=== PATIENT | female | born 1970 | race Caucasian/White ===

== ENCOUNTER 2018-09-07 13:55 | Emergency (ER) | payer MEDICARE, SELFPAY ==
[2018-09-07 14:19] VITALS: BP 142/98; PULSE 92; RESP 18; TEMP 36.6; O2SAT 97; BMI 25.5
[2018-09-07 15:14] LABS: INR 0.9 (0.9-1.3); Prothrombin Time 10.6 SECONDS (10.1-12.7)
[2018-09-07 15:16] LABS: Add Manual Diff / Slide Review NO; Basophils Percent Auto 0.4 % (0-2); Eosinophils Percent Auto 0.7 % (2-4); Hemoglobin 14.7 g/dL (12.0-16.0); Lymphocytes Percent Auto 25.9 % (25-40); Mean Corpuscular HGB Conc 33.6 % (30-36); Mean Corpuscular Hemoglobin 36.4 PG (26-34); Mean Corpuscular Volume 108.4 fL (80-100); Monocytes Percent Auto 4.9 % (3-14); Neutrophils Absolute Auto 7900 /uL (1500-7000); Neutrophils Percent Auto 68.1 % (50-75); PTT Partial Thromboplastin Tim 30 SECONDS (26.4-36.2); Platelet Count 244 X10^3/uL (150-400); Red Blood Cell Count 4.05 X10^6/uL (4.0-5.2); Red Cell Distribution Width 12.1 % (11.6-14.8); White Blood Cell Count 11.7 X10^3/uL (4.5-11.0)
[2018-09-07 15:19] LABS: Alanine Aminotransferase 38 IU/L (9-52); Albumin 4.7 g/dL (3.5-5.0); Albumin Globulin Ratio 1.8 (1.0-2.8); Alkaline Phosphatase 52 U/L (38-126); Aspartate Aminotransferase 25 IU/L (14-36); BUN Creatinine Ratio 24.3 (6-22); Bilirubin Total 0.3 mg/dL (0.2-1.3); Blood Urea Nitrogen 17 mg/dL (7-17); Carbon Dioxide 25 mmol/L (22-32); Chloride 102 mmol/L (98-107); Estimated Glomerular Filt Rate > 60.0 mL/min (>60); Globulin 2.6 g/dL (1.7-4.1); Glucose 89 mg/dL (70-100); HEMOLYSIS < 15 (0-50); Lipase 79 U/L (23-300); Potassium 4.6 mmol/L (3.4-5.1); Sodium 142 mmol/L (137-145); Total Protein 7.3 g/dL (6.3-8.2)
--- NOTE | 2018-09-07 15:34 | DI.CT.S_ITS ---
PROCEDURE: CT KIDNEY URETER BLADDER (KUB) INDICATIONS: flank pain TECHNIQUE: Noncontrast 5 mm thick sections acquired from the diaphragms to the symphysis. 5 mm thick coronal and sagittal reformats were then performed. For radiation dose reduction, the following was used: automated exposure control, adjustment of mA and/or kV according to patient size. COMPARISON: [facility], CT, ABDOMEN/PELVIS WITHOUT CONTRAS, 12/08/2014, 21:16. [facility], CT, KIDNEY/ URETER/BLADDER, 01/19/2016, 15:54. FINDINGS: Image quality: Excellent. Lung bases: Lung bases are clear. Heart size is normal. Urinary system: Both kidneys are normal in size. No kidney stones. No hydronephrosis or perinephric fat stranding. Both ureters appear non-dilated throughout their expected courses. Bladder wall thickness is normal; no calcified bladder stones. Other solid organs: Liver is normal in size. Gallbladder is normal. Pancreas is normal in contours. Spleen is normal in size. No adrenal nodules. Peritoneum and bowel: There are scattered colonic diverticula in sigmoid colon. There is focal stranding surrounding a sigmoid diverticula consistent with acute diverticulitis. Unenhanced bowel loops demonstrate normal wall thickness and caliber. Normal appendix. No free fluid or air. Nodes and vessels: No retroperitoneal or mesenteric adenopathy by size criteria. Aorta and inferior vena cava are normal in caliber. Abdominal wall: No ventral hernias. Pelvis: No free pelvic fluid. No inguinal hernias or adenopathy. Bones: No suspicious bony lesions. No vertebral body compression fractures. IMPRESSION: 1. Sigmoid diverticulosis. There is stranding around the sigmoid colon consistent with acute diverticulitis. 2. No renal stone or hydronephrosis. 3. Normal appendix. Dictated by: Rebecca Donohue M.D. on 09/07/2018 at 16:53 Approved by: Rebecca Donohue M.D. on 09/07/2018 at 17:06
[2018-09-07] MEDS: ONDANSETRON 4 MG/2 ML INJ IV (15:42)
[2018-09-07] MEDS: KETOROLAC 60 MG/2 ML VIAL 30 MG IV (15:42)
[2018-09-07] MEDS: SODIUM CHLORIDE 0.9% 1,000 ML 1000 ML IV (15:42)
[2018-09-07 15:59] VITALS: BP 116/74; PULSE 68; RESP 18; O2SAT 95
[2018-09-07 17:00] VITALS: BP 121/69; PULSE 68; O2SAT 95
--- NOTE | 2018-09-07 17:29 | ED.FEMALEGU ---
HPI - Female Genitourinary <LB Urban - Last Filed: 09/07/18 19:43> General Chief complaint: Urogenital-Female Stated complaint: KIDNEY PAIN,MIDDLE BACK PAIN Time Seen by Provider: 09/07/18 15:24 Source: patient Mode of arrival: ambulatory Limitations: no limitations History of Present Illness HPI Narrative: Patient is a 48-year-old female smoker presents with a chief complaint of bilateral flank pain that started today. She states that the pain comes in waves is consistent with her previous kidney stones. She denies any fever, nausea vomiting diarrhea. She does complain of occasional vomiting when the pain is severe. She denies any dysuria urgency or frequency. She denies any abdominal pain. Related Data Previous Rx's Medication Instructions Recorded estradiol 1 mg tablet 1 mg PO QDAY #90 tab 05/20/18 ciprofloxacin HCl 500 mg PO BID #14 tab 09/07/18 metronidazole [Flagyl] 500 mg PO TID 10 Days #30 tab 09/07/18 ondansetron 4 mg PO TID-QID PRN #20 tab 09/07/18 oxycodone-acetaminophen [Percocet] 1 tab PO Q4-6H PRN #20 tab 09/07/18 amoxicillin-pot clavulanate 1 tab PO TID 10 Days #30 tab 09/08/18 [Augmentin] promethazine 25 mg IN Q6H PRN #12 each 09/08/18 Allergies Allergy/AdvReac Type Severity Reaction Status Date / Time No Known Drug Allergies Allergy Verified 09/08/18 12:11 Review of Systems <LB Urban - Last Filed: 09/07/18 19:43> Review of Systems GENERAL: Denies chills, fatigue, malaise, fever, sweats. HEENT: Denies sinus pain, ear pain, sore throat, difficulty swallowing, dizziness. RESPIRATORY: Denies dyspnea, cough, wheezing, hemoptysis, sputum. CARDIOVASCULAR: Denies chest pain, palpitations, orthopnea, edema, GASTROINTESTINAL: See HPI : See HPI MUSCULOSKELETAL: denies weakness, joint pain, or bony pain SKIN: Denies rash, skin lesions, or other NEUROLOGIC: Denies weakness, headache, numbness, change in speech, confusion, seizures, incoordination. PSYCHIATRIC: No concerning psychosocial issues. 12 point review of systems is negative except for those stated above Exam <MIRA Urban - Last Filed: 09/07/18 19:43> Narrative Exam Narrative: GENERAL: This is a well-nourished, well-developed patient, in mild distress. HEAD: Atraumatic. Normocephalic. No temporal or scalp tenderness. EYES: Pupils equal round and reactive. Extraocular motions intact. No scleral icterus. No injection or drainage. ENT: Nose without bleeding, purulent drainage or septal hematoma. Throat without erythema, tonsillar hypertrophy or exudate. Uvula midline. Airway patent. NECK: Trachea midline. No JVD or lymphadenopathy. Supple, nontender, no meningeal signs. CARDIOVASCULAR: Regular rate and rhythm without murmurs, gallops, or rubs. RESPIRATORY: Clear to auscultation. Breath sounds equal bilaterally. No wheezes, rales, or rhonchi. GASTROINTESTINAL: Abdomen soft, non-tender, nondistended. No hepato-splenomegaly, or palpable masses. No guarding. Active bowel sounds all 4 quadrants. EXTREMITIES: No clubbing, cyanosis, or edema. No joint tenderness, effusion, or edema noted. BACK: Nontender without deformity or crepitance. Diffuse bilateral flank pain to palpation. NEURO: AOx3. SKIN: No rash or erythema. Initial Vital Signs Initial Vital Signs: Vital Signs Temperature 97.9 F 09/07/18 14:19 Pulse Rate 92 H 09/07/18 14:19 Respiratory Rate 18 09/07/18 14:19 Blood Pressure 142/98 H 09/07/18 14:19 Pulse Oximetry 97 09/07/18 14:19 <Ash Melo DO - Last Filed: 09/09/18 20:22> Initial Vital Signs Initial Vital Signs: Vital Signs Temperature 97.9 F 09/07/18 14:19 Pulse Rate 92 H 09/07/18 14:19 Respiratory Rate 18 09/07/18 14:19 Blood Pressure 142/98 H 09/07/18 14:19 Pulse Oximetry 97 09/07/18 14:19 Course <MIRA Urban - Last Filed: 09/07/18 19:43> Course Narrative: I checked on the patient several times throughout her stay in the emergency department. Orders Ordered: Discontinued Medications Sodium Chloride (Normal Saline 0.9%) 1,000 mls @ 1,000 mls/hr IV BOLUS ONE Stop: 09/07/18 16:31 Last Infusion: 09/07/18 16:34 Dose: 0 mls/hr Admin: 09/07/18 15:42 Dose: 1,000 mls/hr Ketorolac Tromethamine (Toradol) 30 mg IV NOW ONE Stop: 09/07/18 15:33 Last Admin: 09/07/18 15:42 Dose: 30 mg Ondansetron HCl (Zofran Odt) 4 mg PO NOW ONE Stop: 09/07/18 14:50 Last Admin: 09/07/18 15:35 Dose: Not Given Ondansetron HCl (Zofran) 4 mg IV NOW ONE Stop: 09/07/18 15:33 Last Admin: 09/07/18 15:42 Dose: 4 mg Vital Signs - 8 hr 09/07/18 14:19 09/07/18 15:59 09/07/18 17:00 Temperature 97.9 F Pulse Rate 92 H 68 68 Respiratory Rate 18 18 Blood Pressure 142/98 H Blood Pressure [Left Arm] 116/74 121/69 Pulse Oximetry 97 95 95 09/07/18 17:48 Temperature Pulse Rate 72 Respiratory Rate 18 Blood Pressure 125/69 Blood Pressure [Left Arm] Pulse Oximetry 98 <Ash Melo, DO - Last Filed: 09/09/18 20:22> Orders Ordered: Discontinued Medications Sodium Chloride (Normal Saline 0.9%) 1,000 mls @ 1,000 mls/hr IV BOLUS ONE Stop: 09/07/18 16:31 Last Infusion: 09/07/18 16:34 Dose: 0 mls/hr Admin: 09/07/18 15:42 Dose: 1,000 mls/hr Ketorolac Tromethamine (Toradol) 30 mg IV NOW ONE Stop: 09/07/18 15:33 Last Admin: 09/07/18 15:42 Dose: 30 mg Ondansetron HCl (Zofran Odt) 4 mg PO NOW ONE Stop: 09/07/18 14:50 Last Admin: 09/07/18 15:35 Dose: Not Given Ondansetron HCl (Zofran) 4 mg IV NOW ONE Stop: 09/07/18 15:33 Last Admin: 09/07/18 15:42 Dose: 4 mg Vital Signs - 8 hr 09/07/18 14:19 09/07/18 15:59 09/07/18 17:00 Temperature 97.9 F Pulse Rate 92 H 68 68 Respiratory Rate 18 18 Blood Pressure 142/98 H Blood Pressure [Left Arm] 116/74 121/69 Pulse Oximetry 97 95 95 09/07/18 17:48 Temperature Pulse Rate 72 Respiratory Rate 18 Blood Pressure 125/69 Blood Pressure [Left Arm] Pulse Oximetry 98 MDM - Female Genitourinary <Jessica Gore, [employer]-BC - Last Filed: 09/07/18 19:43> Lab Data Result diagrams: 09/07/18 15:00 09/07/18 15:00 Lab Results 09/07/18 09/07/18 09/07/18 Range/Units 15:00 15:00 15:00 WBC 11.7 H (4.5-11.0) X10^3/uL RBC 4.05 (4.0-5.2) X10^6/uL Hgb 14.7 (12.0-16.0) g/dL Hct 44.0 (36-46) % MCV 108.4 H (80-100) fL MCH 36.4 H (26-34) PG MCHC 33.6 (30-36) % RDW 12.1 (11.6-14.8) % Plt Count 244 (150-400) X10^3/uL Neut % (Auto) 68.1 (50-75) % Lymph % (Auto) 25.9 (25-40) % Graham % (Auto) 4.9 (3-14) % Eos % (Auto) 0.7 L (2-4) % Baso % (Auto) 0.4 (0-2) % Neut # (Auto) 7900 H (5452-0858) /uL PT 10.6 (10.1-12.7) SECONDS INR 0.9 (0.9-1.3) APTT 30 (26.4-36.2) SECONDS Sodium 142 (137-145) mmol/L Potassium 4.6 (3.4-5.1) mmol/L Chloride 102 (98-107) mmol/L Carbon Dioxide 25 (22-32) mmol/L BUN 17 (7-17) mg/dL Creatinine 0.70 (0.52-1.04) mg/dL Estimated GFR > 60.0 (>60) mL/min BUN/Creatinine Ratio 24.3 H (6-22) Glucose 89 (70-100) mg/dL Calcium 10.0 (8.4-10.2) mg/dL Total Bilirubin 0.3 (0.2-1.3) mg/dL AST 25 (14-36) IU/L ALT 38 (9-52) IU/L Alkaline Phosphatase 52 (38-126) U/L Total Protein 7.3 (6.3-8.2) g/dL Albumin 4.7 (3.5-5.0) g/dL Globulin 2.6 (1.7-4.1) g/dL Albumin/Globulin Ratio 1.8 (1.0-2.8) Lipase 79 (23-300) U/L Urine Dip Bedside Urine Glucose Negative Bedside Urine Bilirubin - Negative Bedside Urine Ketone - Negative Urine Specific Worley 1.020 Bedside Urine Occult Blood - Negative Bedside Urine pH 6.0 Bedside Urine Protein - Negative Bedside Urine Urobilinogen - Negative Bedside Urine Nitrite - Negative Bedside Urine Leukocytes - Negative Esterase Imaging Data CT scan - abdomen: Radiologist's impression: [place] [id number] CT Scan Report Signed Patient: eBthany Sprague MR#: [id number] : 1970 Acct:[id number] Age/Sex: 48 / F Date of Service: 09/07/18 Loc: ED Accession Number: [id number] Procedure: CT kidney ureter bladder (KUB) [facility] PROCED[facility]: CT KIDNEY URETER BLADDER (KUB) INDICATIONS: flank pain TECHNIQUE: Noncontrast 5 mm thick sections acquired from the diaphragms to the symphysis. 5 mm thick coronal and sagittal reformats were then performed. For radiation dose reduction, the following was used: automated exposure control, adjustment of mA and/or kV according to patient size. COMPARISON: [facility], CT, ABDOMEN/PELVIS WITHOUT CONTRAS, 12/08/2014, 21:16. [facility], CT, KIDNEY/ URETER/BLADDER, 01/19/2016, 15:54. FINDINGS: Image quality: Excellent. Lung bases: Lung bases are clear. Heart size is normal. Urinary system: Both kidneys are normal in size. No kidney stones. No hydronephrosis or perinephric fat stranding. Both ureters appear non-dilated throughout their expected courses. Bladder wall thickness is normal; no calcified bladder stones. Other solid organs: Liver is normal in size. Gallbladder is normal. Pancreas is normal in contours. Spleen is normal in size. No adrenal nodules. Peritoneum and bowel: There are scattered colonic diverticula in sigmoid colon. There is focal stranding surrounding a sigmoid diverticula consistent with acute diverticulitis. Unenhanced bowel loops demonstrate normal wall thickness and caliber. Normal appendix. No free fluid or air. Nodes and vessels: No retroperitoneal or mesenteric adenopathy by size criteria. Aorta and inferior vena cava are normal in caliber. Abdominal wall: No ventral hernias. Pelvis: No free pelvic fluid. No inguinal hernias or adenopathy. Bones: No suspicious bony lesions. No vertebral body compression fractures. IMPRESSION: 1. Sigmoid diverticulosis. There is stranding around the sigmoid colon consistent with acute diverticulitis. 2. No renal stone or hydronephrosis. 3. Normal appendix. Dictated by: Rebecca Donohue M.D. on 09/07/2018 at 16:53 Approved by: Rebecca Donohue M.D. on 09/07/2018 at 17:06 MDM Narrative Medical decision making narrative: Patient is a 48-year-old female who presented with flank pain. She felt as though they were repeat kidney stones, however CT showed diverticulitis. She also had slightly elevated WBC count. Mother she was started on combination of Cipro and Flagyl. She is given a prescription of Percocet and Zofran for pain. I did discuss with her not drinking alcohol with the Flagyl. The patient did mention that she might hold off on starting her antibiotics until after [place] so she could drink over the holidays. I tried to discourage her from this idea. I discussed at length return precautions of inability keep down fluids, high fever or any acute concerns and discussed follow up with her primary care provider. Patient had no questions or concerns upon discharge. <Ash Melo, DO - Last Filed: 09/09/18 20:22> Lab Data Lab Results 09/07/18 09/07/18 09/07/18 Range/Units 15:00 15:00 15:00 WBC 11.7 H (4.5-11.0) X10^3/uL RBC 4.05 (4.0-5.2) X10^6/uL Hgb 14.7 (12.0-16.0) g/dL Hct 44.0 (36-46) % MCV 108.4 H (80-100) fL MCH 36.4 H (26-34) PG MCHC 33.6 (30-36) % RDW 12.1 (11.6-14.8) % Plt Count 244 (150-400) X10^3/uL Neut % (Auto) 68.1 (50-75) % Lymph % (Auto) 25.9 (25-40) % Graham % (Auto) 4.9 (3-14) % Eos % (Auto) 0.7 L (2-4) % Baso % (Auto) 0.4 (0-2) % Neut # (Auto) 7900 H (8029-3153) /uL PT 10.6 (10.1-12.7) SECONDS INR 0.9 (0.9-1.3) APTT 30 (26.4-36.2) SECONDS Sodium 142 (137-145) mmol/L Potassium 4.6 (3.4-5.1) mmol/L Chloride 102 (98-107) mmol/L Carbon Dioxide 25 (22-32) mmol/L BUN 17 (7-17) mg/dL Creatinine 0.70 (0.52-1.04) mg/dL Estimated GFR > 60.0 (>60) mL/min BUN/Creatinine Ratio 24.3 H (6-22) Glucose 89 (70-100) mg/dL Calcium 10.0 (8.4-10.2) mg/dL Total Bilirubin 0.3 (0.2-1.3) mg/dL AST 25 (14-36) IU/L ALT 38 (9-52) IU/L Alkaline Phosphatase 52 (38-126) U/L Total Protein 7.3 (6.3-8.2) g/dL Albumin 4.7 (3.5-5.0) g/dL Globulin 2.6 (1.7-4.1) g/dL Albumin/Globulin Ratio 1.8 (1.0-2.8) Lipase 79 (23-300) U/L Urine Dip Bedside Urine Glucose Negative Bedside Urine Bilirubin - Negative Bedside Urine Ketone - Negative Urine Specific [place] 1.020 Bedside Urine Occult Blood - Negative Bedside Urine pH 6.0 Bedside Urine Protein - Negative Bedside Urine Urobilinogen - Negative Bedside Urine Nitrite - Negative Bedside Urine Leukocytes - Negative Esterase Discharge Plan Departure Patient Disposition: Home Clinical Impression: Diverticulitis Discharge Date/Time: 09/07/18 17:51 Interventions: ED Discharge Assessment Last Done: 09/07/18 17:48 Instructions: DI for Diverticulitis Activity Restrictions/Additional Instructions: I am starting on 2 antibiotics for your diverticulitis. One of these cannot be combined with alcohol. I am also giving a medication for nausea to take as needed as well as pain to take as needed. Please be aware that the pain medication can be sedating. Please do not combine it with any muscle relaxers or other sedating agents. Please monitor for fever, inability keep down fluids or any acute concerns and follow up with primary care provider come back to the emergency department if needed. Prescriptions: New ciprofloxacin HCl 500 mg tablet 500 mg PO BID Qty: 14 RF: 0 metronidazole [Flagyl] 500 mg tablet 500 mg PO TID 10 Days Qty: 30 RF: 0 ondansetron 4 mg tablet,disintegrating 4 mg PO TID-QID PRN (Reason: nausea and vomiting) Qty: 20 RF: 0 oxycodone-acetaminophen [Percocet] 5-325 mg tablet 1 tab PO Q4-6H PRN (Reason: pain) Qty: 20 RF: 0 No Action estradiol 1 mg tablet 1 mg PO QDAY Qty: 90 RF: 1 amoxicillin-pot clavulanate [Augmentin] 875-125 mg tablet 1 tab PO TID 10 Days Qty: 30 RF: 0 promethazine 25 mg suppository 25 mg IN Q6H PRN (Reason: nausea and vomiting) Qty: 12 RF: 0 <Ash Melo DO - Last Filed: 09/09/18 20:22> Cosgwendolyn ED Attending Sury Attestation: I was immediately available in the department for consultation. Documentation has been reviewed. I agree with assessment and plan.
--- NOTE | 2018-09-07 17:33 | ED_ITS ---
HPI - Female Genitourinary <LB Urban - Last Filed: 09/07/18 19:43> General Chief complaint: Urogenital-Female Stated complaint: KIDNEY PAIN,MIDDLE BACK PAIN Time Seen by Provider: 09/07/18 15:24 Source: patient Mode of arrival: ambulatory Limitations: no limitations History of Present Illness HPI Narrative: Patient is a 48-year-old female smoker presents with a chief complaint of bilateral flank pain that started today. She states that the pain comes in waves is consistent with her previous kidney stones. She denies any fever, nausea vomiting diarrhea. She does complain of occasional vomiting when the pain is severe. She denies any dysuria urgency or frequency. She denies any abdominal pain. Related Data Previous Rx's Medication Instructions Recorded estradiol 1 mg tablet 1 mg PO QDAY #90 tab 05/20/18 ciprofloxacin HCl 500 mg PO BID #14 tab 09/07/18 metronidazole [Flagyl] 500 mg PO TID 10 Days #30 tab 09/07/18 ondansetron 4 mg PO TID-QID PRN #20 tab 09/07/18 oxycodone-acetaminophen [Percocet] 1 tab PO Q4-6H PRN #20 tab 09/07/18 amoxicillin-pot clavulanate 1 tab PO TID 10 Days #30 tab 09/08/18 [Augmentin] promethazine 25 mg MI Q6H PRN #12 each 09/08/18 Allergies Allergy/AdvReac Type Severity Reaction Status Date / Time No Known Drug Allergies Allergy Verified 09/08/18 12:11 Review of Systems <LB Urban - Last Filed: 09/07/18 19:43> Review of Systems GENERAL: Denies chills, fatigue, malaise, fever, sweats. HEENT: Denies sinus pain, ear pain, sore throat, difficulty swallowing, dizziness. RESPIRATORY: Denies dyspnea, cough, wheezing, hemoptysis, sputum. CARDIOVASCULAR: Denies chest pain, palpitations, orthopnea, edema, GASTROINTESTINAL: See HPI : See HPI MUSCULOSKELETAL: denies weakness, joint pain, or bony pain SKIN: Denies rash, skin lesions, or other NEUROLOGIC: Denies weakness, headache, numbness, change in speech, confusion, seizures, incoordination. PSYCHIATRIC: No concerning psychosocial issues. 12 point review of systems is negative except for those stated above Exam <MIRA Urban - Last Filed: 09/07/18 19:43> Narrative Exam Narrative: GENERAL: This is a well-nourished, well-developed patient, in mild distress. HEAD: Atraumatic. Normocephalic. No temporal or scalp tenderness. EYES: Pupils equal round and reactive. Extraocular motions intact. No scleral icterus. No injection or drainage. ENT: Nose without bleeding, purulent drainage or septal hematoma. Throat without erythema, tonsillar hypertrophy or exudate. Uvula midline. Airway patent. NECK: Trachea midline. No JVD or lymphadenopathy. Supple, nontender, no meningeal signs. CARDIOVASCULAR: Regular rate and rhythm without murmurs, gallops, or rubs. RESPIRATORY: Clear to auscultation. Breath sounds equal bilaterally. No wheezes , rales, or rhonchi. GASTROINTESTINAL: Abdomen soft, non-tender, nondistended. No hepato-splenomegaly , or palpable masses. No guarding. Active bowel sounds all 4 quadrants. EXTREMITIES: No clubbing, cyanosis, or edema. No joint tenderness, effusion, or edema noted. BACK: Nontender without deformity or crepitance. Diffuse bilateral flank pain to palpation. NEURO: AOx3. SKIN: No rash or erythema. Initial Vital Signs Initial Vital Signs: Vital Signs Temperature 97.9 F 09/07/18 14:19 Pulse Rate 92 H 09/07/18 14:19 Respiratory Rate 18 09/07/18 14:19 Blood Pressure 142/98 H 09/07/18 14:19 Pulse Oximetry 97 09/07/18 14:19 <Ash Melo DO - Last Filed: 09/09/18 20:22> Initial Vital Signs Initial Vital Signs: Vital Signs Temperature 97.9 F 09/07/18 14:19 Pulse Rate 92 H 09/07/18 14:19 Respiratory Rate 18 09/07/18 14:19 Blood Pressure 142/98 H 09/07/18 14:19 Pulse Oximetry 97 09/07/18 14:19 Course <MIRA Urban - Last Filed: 09/07/18 19:43> Course Narrative: I checked on the patient several times throughout her stay in the emergency department. Orders Ordered: Discontinued Medications Sodium Chloride (Normal Saline 0.9%) 1,000 mls @ 1,000 mls/hr IV BOLUS ONE Stop: 09/07/18 16:31 Last Infusion: 09/07/18 16:34 Dose: 0 mls/hr Admin: 09/07/18 15:42 Dose: 1,000 mls/hr Ketorolac Tromethamine (Toradol) 30 mg IV NOW ONE Stop: 09/07/18 15:33 Last Admin: 09/07/18 15:42 Dose: 30 mg Ondansetron HCl (Zofran Odt) 4 mg PO NOW ONE Stop: 09/07/18 14:50 Last Admin: 09/07/18 15:35 Dose: Not Given Ondansetron HCl (Zofran) 4 mg IV NOW ONE Stop: 09/07/18 15:33 Last Admin: 09/07/18 15:42 Dose: 4 mg Vital Signs - 8 hr 09/07/18 14:19 09/07/18 15:59 09/07/18 17:00 Temperature 97.9 F Pulse Rate 92 H 68 68 Respiratory Rate 18 18 Blood Pressure 142/98 H Blood Pressure [Left Arm] 116/74 121/69 Pulse Oximetry 97 95 95 09/07/18 17:48 Temperature Pulse Rate 72 Respiratory Rate 18 Blood Pressure 125/69 Blood Pressure [Left Arm] Pulse Oximetry 98 <Ash Melo, DO - Last Filed: 09/09/18 20:22> Orders Ordered: Discontinued Medications Sodium Chloride (Normal Saline 0.9%) 1,000 mls @ 1,000 mls/hr IV BOLUS ONE Stop: 09/07/18 16:31 Last Infusion: 09/07/18 16:34 Dose: 0 mls/hr Admin: 09/07/18 15:42 Dose: 1,000 mls/hr Ketorolac Tromethamine (Toradol) 30 mg IV NOW ONE Stop: 09/07/18 15:33 Last Admin: 09/07/18 15:42 Dose: 30 mg Ondansetron HCl (Zofran Odt) 4 mg PO NOW ONE Stop: 09/07/18 14:50 Last Admin: 09/07/18 15:35 Dose: Not Given Ondansetron HCl (Zofran) 4 mg IV NOW ONE Stop: 09/07/18 15:33 Last Admin: 09/07/18 15:42 Dose: 4 mg Vital Signs - 8 hr 09/07/18 14:19 09/07/18 15:59 09/07/18 17:00 Temperature 97.9 F Pulse Rate 92 H 68 68 Respiratory Rate 18 18 Blood Pressure 142/98 H Blood Pressure [Left Arm] 116/74 121/69 Pulse Oximetry 97 95 95 09/07/18 17:48 Temperature Pulse Rate 72 Respiratory Rate 18 Blood Pressure 125/69 Blood Pressure [Left Arm] Pulse Oximetry 98 MDM - Female Genitourinary <Jessica Gore, [employer]-BC - Last Filed: 09/07/18 19:43> Lab Data Result diagrams: 09/07/18 15:00 09/07/18 15:00 Lab Results 09/07/18 09/07/18 09/07/18 Range/Units 15:00 15:00 15:00 WBC 11.7 H (4.5-11.0) X10^3/uL RBC 4.05 (4.0-5.2) X10^6/uL Hgb 14.7 (12.0-16.0) g/dL Hct 44.0 (36-46) % MCV 108.4 H (80-100) fL MCH 36.4 H (26-34) PG MCHC 33.6 (30-36) % RDW 12.1 (11.6-14.8) % Plt Count 244 (150-400) X10^3/uL Neut % (Auto) 68.1 (50-75) % Lymph % (Auto) 25.9 (25-40) % [place] % (Auto) 4.9 (3-14) % Eos % (Auto) 0.7 L (2-4) % Baso % (Auto) 0.4 (0-2) % Neut # (Auto) 7900 H (0786-4488) /uL PT 10.6 (10.1-12.7) SECONDS INR 0.9 (0.9-1.3) APTT 30 (26.4-36.2) SECONDS Sodium 142 (137-145) mmol/L Potassium 4.6 (3.4-5.1) mmol/L Chloride 102 (98-107) mmol/L Carbon Dioxide 25 (22-32) mmol/L BUN 17 (7-17) mg/dL Creatinine 0.70 (0.52-1.04) mg/dL Estimated GFR > 60.0 (>60) mL/min BUN/Creatinine Ratio 24.3 H (6-22) Glucose 89 (70-100) mg/dL Calcium 10.0 (8.4-10.2) mg/dL Total Bilirubin 0.3 (0.2-1.3) mg/dL AST 25 (14-36) IU/L ALT 38 (9-52) IU/L Alkaline Phosphatase 52 (38-126) U/L Total Protein 7.3 (6.3-8.2) g/dL Albumin 4.7 (3.5-5.0) g/dL Globulin 2.6 (1.7-4.1) g/dL Albumin/Globulin Ratio 1.8 (1.0-2.8) Lipase 79 (23-300) U/L Urine Dip Bedside Urine Glucose Negative Bedside Urine Bilirubin - Negative Bedside Urine Ketone - Negative Urine Specific [place] 1.020 Bedside Urine Occult Blood - Negative Bedside Urine pH 6.0 Bedside Urine Protein - Negative Bedside Urine Urobilinogen - Negative Bedside Urine Nitrite - Negative Bedside Urine Leukocytes - Negative Esterase Imaging Data CT scan - abdomen: Radiologist's impression: [place] [id number] CT Scan Report Signed Patient: Bethany Sprague MR#: [id number] : 1970 Acct:[id number] Age/Sex: 48 / F Date of Service: 09/07/18 Loc: ED Accession Number: [id number] Procedure: CT kidney ureter bladder (KUB) Ordering Provider[facility] PROCEDURE: CT KIDNEY URETER BLADDER (KUB) INDICATIONS: flank pain TECHNIQUE: Noncontrast 5 mm thick sections acquired from the diaphragms to the symphysis. 5 mm thick coronal and sagittal reformats were then performed. For radiation dose reduction, the following was used: automated exposure control, adjustment of mA and/or kV according to patient size. COMPARISON: [facility], CT, ABDOMEN/PELVIS WITHOUT CONTRAS, 12/08/2014, 21: 16. [facility], CT, KIDNEY/ URETER/BLADDER, 01/19/2016, 15:54. FINDINGS: Image quality: Excellent. Lung bases: Lung bases are clear. Heart size is normal. Urinary system: Both kidneys are normal in size. No kidney stones. No hydronephrosis or perinephric fat stranding. Both ureters appear non-dilated throughout their expected courses. Bladder wall thickness is normal; no calcified bladder stones. Other solid organs: Liver is normal in size. Gallbladder is normal. Pancreas is normal in contours. Spleen is normal in size. No adrenal nodules. Peritoneum and bowel: There are scattered colonic diverticula in sigmoid colon. There is focal stranding surrounding a sigmoid diverticula consistent with acute diverticulitis. Unenhanced bowel loops demonstrate normal wall thickness and caliber. Normal appendix. No free fluid or air. Nodes and vessels: No retroperitoneal or mesenteric adenopathy by size criteria. Aorta and inferior vena cava are normal in caliber. Abdominal wall: No ventral hernias. Pelvis: No free pelvic fluid. No inguinal hernias or adenopathy. Bones: No suspicious bony lesions. No vertebral body compression fractures. IMPRESSION: 1. Sigmoid diverticulosis. There is stranding around the sigmoid colon consistent with acute diverticulitis. 2. No renal stone or hydronephrosis. 3. Normal appendix. Dictated by: Rebecca Donohue M.D. on 09/07/2018 at 16:53 Approved by: Rebecca Donohue M.D. on 09/07/2018 at 17:06 MDM Narrative Medical decision making narrative: Patient is a 48-year-old female who presented with flank pain. She felt as though they were repeat kidney stones, however CT showed diverticulitis. She also had slightly elevated WBC count. Mother she was started on combination of Cipro and Flagyl. She is given a prescription of Percocet and Zofran for pain. I did discuss with her not drinking alcohol with the Flagyl. The patient did mention that she might hold off on starting her antibiotics until after Debra so she could drink over the holidays. I tried to discourage her from this idea. I discussed at length return precautions of inability keep down fluids, high fever or any acute concerns and discussed follow up with her primary care provider. Patient had no questions or concerns upon discharge. <Ash Melo, DO - Last Filed: 09/09/18 20:22> Lab Data Lab Results 09/07/18 09/07/18 09/07/18 Range/Units 15:00 15:00 15:00 WBC 11.7 H (4.5-11.0) X10^3/uL RBC 4.05 (4.0-5.2) X10^6/uL Hgb 14.7 (12.0-16.0) g/dL Hct 44.0 (36-46) % MCV 108.4 H (80-100) fL MCH 36.4 H (26-34) PG MCHC 33.6 (30-36) % RDW 12.1 (11.6-14.8) % Plt Count 244 (150-400) X10^3/uL Neut % (Auto) 68.1 (50-75) % Lymph % (Auto) 25.9 (25-40) % [place] % (Auto) 4.9 (3-14) % Eos % (Auto) 0.7 L (2-4) % Baso % (Auto) 0.4 (0-2) % Neut # (Auto) 7900 H (3792-9197) /uL PT 10.6 (10.1-12.7) SECONDS INR 0.9 (0.9-1.3) APTT 30 (26.4-36.2) SECONDS Sodium 142 (137-145) mmol/L Potassium 4.6 (3.4-5.1) mmol/L Chloride 102 (98-107) mmol/L Carbon Dioxide 25 (22-32) mmol/L BUN 17 (7-17) mg/dL Creatinine 0.70 (0.52-1.04) mg/dL Estimated GFR > 60.0 (>60) mL/min BUN/Creatinine Ratio 24.3 H (6-22) Glucose 89 (70-100) mg/dL Calcium 10.0 (8.4-10.2) mg/dL Total Bilirubin 0.3 (0.2-1.3) mg/dL AST 25 (14-36) IU/L ALT 38 (9-52) IU/L Alkaline Phosphatase 52 (38-126) U/L Total Protein 7.3 (6.3-8.2) g/dL Albumin 4.7 (3.5-5.0) g/dL Globulin 2.6 (1.7-4.1) g/dL Albumin/Globulin Ratio 1.8 (1.0-2.8) Lipase 79 (23-300) U/L Urine Dip Bedside Urine Glucose Negative Bedside Urine Bilirubin - Negative Bedside Urine Ketone - Negative Urine Specific [place] 1.020 Bedside Urine Occult Blood - Negative Bedside Urine pH 6.0 Bedside Urine Protein - Negative Bedside Urine Urobilinogen - Negative Bedside Urine Nitrite - Negative Bedside Urine Leukocytes - Negative Esterase Discharge Plan Departure Patient Disposition: Home Clinical Impression: Diverticulitis Discharge Date/Time: 09/07/18 17:51 Interventions: ED Discharge Assessment Last Done: 09/07/18 17:48 Instructions: DI for Diverticulitis Activity Restrictions/Additional Instructions: I am starting on 2 antibiotics for your diverticulitis. One of these cannot be combined with alcohol. I am also giving a medication for nausea to take as needed as well as pain to take as needed. Please be aware that the pain medication can be sedating. Please do not combine it with any muscle relaxers or other sedating agents. Please monitor for fever, inability keep down fluids or any acute concerns and follow up with primary care provider come back to the emergency department if needed. Prescriptions: New ciprofloxacin HCl 500 mg tablet 500 mg PO BID Qty: 14 RF: 0 metronidazole [Flagyl] 500 mg tablet 500 mg PO TID 10 Days Qty: 30 RF: 0 ondansetron 4 mg tablet,disintegrating 4 mg PO TID-QID PRN (Reason: nausea and vomiting) Qty: 20 RF: 0 oxycodone-acetaminophen [Percocet] 5-325 mg tablet 1 tab PO Q4-6H PRN (Reason: pain) Qty: 20 RF: 0 No Action estradiol 1 mg tablet 1 mg PO QDAY Qty: 90 RF: 1 amoxicillin-pot clavulanate [Augmentin] 875-125 mg tablet 1 tab PO TID 10 Days Qty: 30 RF: 0 promethazine 25 mg suppository 25 mg MI Q6H PRN (Reason: nausea and vomiting) Qty: 12 RF: 0 <Ash Melo DO - Last Filed: 09/09/18 20:22> Cosgwendolyn ED Attending Sury Attestation: I was immediately available in the department for consultation. Documentation has been reviewed. I agree with assessment and plan.
[2018-09-07 17:48] VITALS: BP 125/69; PULSE 72; RESP 18; O2SAT 98
== END 2018-09-07 17:51 | disposition home or self-care (01) ==
PROVIDERS: Emergency Medicine; Emergency Provider Nurse Practitioner Family; Family Provider Transplant Surgery; PCP Family Medicine
DX: N23 Unspecified renal colic (principal); K57.92 Diverticulitis of intestine, part unspecified, without perforation or abscess without bleeding
CPT/HCPCS: 74176; 80053; 81003; 83690; 85025; 85610; 85730; 96361; 96374; 96375; 99283; 99284; J1885; J2405

== ENCOUNTER 2018-09-08 12:05 | Emergency (ER) | payer MEDICARE, SELFPAY ==
[2018-09-08 12:08] VITALS: BP 150/107; PULSE 87; RESP 14; O2SAT 98; BMI 25.5
--- NOTE | 2018-09-08 12:49 | ED.ABDPAIN ---
HPI - Abdominal Pain <MIRA Urban - Last Filed: 09/08/18 16:00> General Chief Complaint: Abdominal Pain Stated Complaint: Weakness/Vomiting Time Seen by Provider: 09/08/18 12:32 Source: patient and family Mode of arrival: ambulatory Limitations: no limitations History of Present Illness HPI narrative: Patient is a 48-year-old female was diagnosed yesterday with diverticulitis. She presents with her and is a current everyday smoker. Yesterday she was given prescriptions for Flagyl, Cipro, Percocet and Zofran. She has taken four Zofran since she left the emergency department yesterday. Of note she did she did go bowling last night, ate fried chicken and cheese dip. She complains of severe diarrhea and vomiting. She states that she did read her discharge instructions but thought she would be okay. She denies any fever chest pain or shortness of breath. She denies any dysuria urgency or frequency. Related Data Previous Rx's Medication Instructions Recorded estradiol 1 mg tablet 1 mg PO QDAY #90 tab 05/20/18 ciprofloxacin HCl 500 mg PO BID #14 tab 09/07/18 metronidazole [Flagyl] 500 mg PO TID 10 Days #30 tab 09/07/18 ondansetron 4 mg PO TID-QID PRN #20 tab 09/07/18 oxycodone-acetaminophen [Percocet] 1 tab PO Q4-6H PRN #20 tab 09/07/18 amoxicillin-pot clavulanate 1 tab PO TID 10 Days #30 tab 09/08/18 [Augmentin] promethazine 25 mg [place] Q6H PRN #12 each 09/08/18 Allergies Allergy/AdvReac Type Severity Reaction Status Date / Time No Known Drug Allergies Allergy Verified 09/08/18 12:11 Review of Systems <MIRA Urban - Last Filed: 09/08/18 16:00> Review of Systems GENERAL: Denies chills, fatigue, malaise, fever, sweats. HEENT: Denies sinus pain, ear pain, sore throat, difficulty swallowing, dizziness. RESPIRATORY: Denies dyspnea, cough, wheezing, hemoptysis, sputum. CARDIOVASCULAR: Denies chest pain, palpitations, orthopnea, edema, GASTROINTESTINAL: See HPI : Denies dysuria, frequency, incontinence, hematuria, urinary retention. MUSCULOSKELETAL: denies weakness, joint pain, or bony pain SKIN: Denies rash, skin lesions, or other NEUROLOGIC: Denies weakness, headache, numbness, change in speech, confusion, seizures, incoordination. PSYCHIATRIC: No concerning psychosocial issues. 12 point review of systems is negative except for those stated above Exam <MIRA Urban - Last Filed: 09/08/18 16:00> Narrative Exam Narrative: GENERAL: This is a well-nourished, well-developed patient, in no acute distress HEAD: Atraumatic. Normocephalic. No temporal or scalp tenderness. EYES: Pupils equal round and reactive. Extraocular motions intact. No scleral icterus. No injection or drainage. ENT: Nose without bleeding, purulent drainage or septal hematoma. Throat without erythema, tonsillar hypertrophy or exudate. Uvula midline. Airway patent. NECK: Trachea midline. No JVD or lymphadenopathy. Supple, nontender, no meningeal signs. CARDIOVASCULAR: Regular rate and rhythm without murmurs, gallops, or rubs. RESPIRATORY: Clear to auscultation. Breath sounds equal bilaterally. No wheezes, rales, or rhonchi. GASTROINTESTINAL: Abdomen soft, diffusely tender, nondistended. No hepato-splenomegaly, or palpable masses. No guarding. Hyperactive bowel sounds all 4 quadrants. EXTREMITIES: No clubbing, cyanosis, or edema. No joint tenderness, effusion, or edema noted. BACK: Nontender without deformity or crepitance. No flank tenderness. NEURO: AOx3. SKIN: No rash or erythema. Initial Vital Signs Initial Vital Signs: Vital Signs Pulse Rate 87 09/08/18 12:08 Respiratory Rate 14 09/08/18 12:08 Blood Pressure 150/107 H 09/08/18 12:08 Pulse Oximetry 98 09/08/18 12:08 <Jaiden Byrd DO - Last Filed: 09/08/18 16:33> Initial Vital Signs Initial Vital Signs: Vital Signs Pulse Rate 87 09/08/18 12:08 Respiratory Rate 14 09/08/18 12:08 Blood Pressure 150/107 H 09/08/18 12:08 Pulse Oximetry 98 09/08/18 12:08 Course <MIRA Urban - Last Filed: 09/08/18 16:00> Course Narrative: I checked on the patient multiple times throughout her stay in the emergency department. Orders Ordered: ED Orders 09/08/18 12:51 Complete Blood Count AUTO DIFF Stat Comprehensive Metabolic Panel Stat Lipase Stat Discontinued Medications Amoxicillin/Clavulanate Potassium (Augmentin 875-125 Mg) 1 tab PO NOW ONE Stop: 09/08/18 14:44 Last Admin: 09/08/18 15:07 Dose: 1 tab Sodium Chloride (Normal Saline 0.9%) 1,000 mls @ 1,000 mls/hr IV BOLUS ONE Stop: 09/08/18 13:20 Last Infusion: 09/08/18 14:18 Dose: 0 mls/hr Admin: 09/08/18 13:00 Dose: 1,000 mls/hr Sodium Chloride (Normal Saline 0.9%) 1,000 mls @ 1,000 mls/hr IV BOLUS ONE Stop: 09/08/18 14:57 Last Infusion: 09/08/18 15:21 Dose: 0 mls/hr Admin: 09/08/18 14:17 Dose: 1,000 mls/hr Morphine Sulfate (Morphine) 2 mg IV NOW ONE Stop: 09/08/18 13:59 Last Admin: 09/08/18 14:17 Dose: 2 mg Ondansetron HCl (Zofran) 4 mg IV NOW ONE Stop: 09/08/18 12:22 Last Admin: 09/08/18 13:00 Dose: 4 mg Promethazine HCl (Phenadoz) 25 mg [place] NOW ONE Stop: 09/08/18 13:33 Last Admin: 09/08/18 13:47 Dose: 25 mg Vital Signs - 8 hr 09/08/18 12:08 09/08/18 13:00 09/08/18 13:37 Pulse Rate 87 70 64 Respiratory Rate 14 16 Blood Pressure 150/107 H Blood Pressure [Right Arm] 123/78 129/87 Pulse Oximetry 98 98 97 09/08/18 14:21 09/08/18 15:02 Pulse Rate 70 66 Respiratory Rate 18 16 Blood Pressure Blood Pressure [Right Arm] 126/80 127/78 Pulse Oximetry 99 97 <Jaiden Byrd DO - Last Filed: 09/08/18 16:33> Orders Ordered: ED Orders 09/08/18 12:51 Complete Blood Count AUTO DIFF Stat Comprehensive Metabolic Panel Stat Lipase Stat Discontinued Medications Amoxicillin/Clavulanate Potassium (Augmentin 875-125 Mg) 1 tab PO NOW ONE Stop: 09/08/18 14:44 Last Admin: 09/08/18 15:07 Dose: 1 tab Sodium Chloride (Normal Saline 0.9%) 1,000 mls @ 1,000 mls/hr IV BOLUS ONE Stop: 09/08/18 13:20 Last Infusion: 09/08/18 14:18 Dose: 0 mls/hr Admin: 09/08/18 13:00 Dose: 1,000 mls/hr Sodium Chloride (Normal Saline 0.9%) 1,000 mls @ 1,000 mls/hr IV BOLUS ONE Stop: 09/08/18 14:57 Last Infusion: 09/08/18 15:21 Dose: 0 mls/hr Admin: 09/08/18 14:17 Dose: 1,000 mls/hr Morphine Sulfate (Morphine) 2 mg IV NOW ONE Stop: 09/08/18 13:59 Last Admin: 09/08/18 14:17 Dose: 2 mg Ondansetron HCl (Zofran) 4 mg IV NOW ONE Stop: 09/08/18 12:22 Last Admin: 09/08/18 13:00 Dose: 4 mg Promethazine HCl (Phenadoz) 25 mg [place] NOW ONE Stop: 09/08/18 13:33 Last Admin: 09/08/18 13:47 Dose: 25 mg Vital Signs - 8 hr 09/08/18 12:08 09/08/18 13:00 09/08/18 13:37 Pulse Rate 87 70 64 Respiratory Rate 14 16 Blood Pressure 150/107 H Blood Pressure [Right Arm] 123/78 129/87 Pulse Oximetry 98 98 97 09/08/18 14:21 09/08/18 15:02 Pulse Rate 70 66 Respiratory Rate 18 16 Blood Pressure Blood Pressure [Right Arm] 126/80 127/78 Pulse Oximetry 99 97 MDM - Abdominal Pain <MIRA Urban - Last Filed: 09/08/18 16:00> Lab Data Result diagrams: 09/08/18 12:51 09/08/18 12:51 Lab Results 09/08/18 09/08/18 Range/Units 12:51 12:51 WBC 8.7 (4.5-11.0) X10^3/uL RBC 4.03 (4.0-5.2) X10^6/uL Hgb 15.2 (12.0-16.0) g/dL Hct 43.6 (36-46) % MCV 108.2 H (80-100) fL MCH 37.7 H (26-34) PG MCHC 34.8 (30-36) % RDW 12.5 (11.6-14.8) % Plt Count 222 (150-400) X10^3/uL Neut % (Auto) 69.2 (50-75) % Lymph % (Auto) 25.0 (25-40) % [place] % (Auto) 4.9 (3-14) % Eos % (Auto) 0.6 L (2-4) % Baso % (Auto) 0.3 (0-2) % Neut # (Auto) 6000 (3678-9380) /uL Sodium 141 (137-145) mmol/L Potassium 5.6 H (3.4-5.1) mmol/L Chloride 104 (98-107) mmol/L Carbon Dioxide 20 L (22-32) mmol/L BUN 11 (7-17) mg/dL Creatinine 0.70 (0.52-1.04) mg/dL Estimated GFR > 60.0 (>60) mL/min BUN/Creatinine Ratio 15.7 (6-22) Glucose 89 (70-100) mg/dL Calcium 9.3 (8.4-10.2) mg/dL Total Bilirubin 1.3 (0.2-1.3) mg/dL AST 52 H (14-36) IU/L ALT 29 (9-52) IU/L Alkaline Phosphatase 54 (38-126) U/L Total Protein 8.4 H (6.3-8.2) g/dL Albumin 5.2 H (3.5-5.0) g/dL Globulin 3.2 (1.7-4.1) g/dL Albumin/Globulin Ratio 1.6 (1.0-2.8) Lipase 57 (23-300) U/L Point of care testing: Urine Dip Bedside Urine Glucose Negative Bedside Urine Bilirubin - Negative Bedside Urine Ketone - Negative Urine Specific [place] 1.015 Bedside Urine Occult Blood - Negative Bedside Urine pH 6.0 Bedside Urine Protein - Negative Bedside Urine Urobilinogen - Negative Bedside Urine Nitrite - Negative Bedside Urine Leukocytes - Negative Esterase MDM Narrative Medical decision making narrative: The patient is a 48-year-old female recent diagnosis of diverticulitis who comes in today complaining of nausea and vomiting. She admits to eating fried chicken and bigger cheese last night despite her previously discussed discharge instructions. Today we did basic labs as well as IV rehydration. She received 2 L normal saline emergency department as well as anti emetics and pain medicine. I am changing her regimen from Flagyl and Cipro to Augmentin to see if that is better tolerated. I discussed at length that she needs to stop the Flagyl and Cipro and start the Augmentin. I gave her a prescription for Phenergan suppositories as well. The patient felt much improved after 2 L of IVF and was able tolerate p.o. fluids, p.o. solids and her 1st dose of Augmentin. I discussed at length with her I simple diet as well as return precautions the emergency department and follow up with primary care provider. <Jaiden Byrd, DO - Last Filed: 09/08/18 16:33> Lab Data Lab Results 09/08/18 09/08/18 Range/Units 12:51 12:51 WBC 8.7 (4.5-11.0) X10^3/uL RBC 4.03 (4.0-5.2) X10^6/uL Hgb 15.2 (12.0-16.0) g/dL Hct 43.6 (36-46) % MCV 108.2 H (80-100) fL MCH 37.7 H (26-34) PG MCHC 34.8 (30-36) % RDW 12.5 (11.6-14.8) % Plt Count 222 (150-400) X10^3/uL Neut % (Auto) 69.2 (50-75) % Lymph % (Auto) 25.0 (25-40) % [place] % (Auto) 4.9 (3-14) % Eos % (Auto) 0.6 L (2-4) % Baso % (Auto) 0.3 (0-2) % Neut # (Auto) 6000 (9495-8242) /uL Sodium 141 (137-145) mmol/L Potassium 5.6 H (3.4-5.1) mmol/L Chloride 104 (98-107) mmol/L Carbon Dioxide 20 L (22-32) mmol/L BUN 11 (7-17) mg/dL Creatinine 0.70 (0.52-1.04) mg/dL Estimated GFR > 60.0 (>60) mL/min BUN/Creatinine Ratio 15.7 (6-22) Glucose 89 (70-100) mg/dL Calcium 9.3 (8.4-10.2) mg/dL Total Bilirubin 1.3 (0.2-1.3) mg/dL AST 52 H (14-36) IU/L ALT 29 (9-52) IU/L Alkaline Phosphatase 54 (38-126) U/L Total Protein 8.4 H (6.3-8.2) g/dL Albumin 5.2 H (3.5-5.0) g/dL Globulin 3.2 (1.7-4.1) g/dL Albumin/Globulin Ratio 1.6 (1.0-2.8) Lipase 57 (23-300) U/L Point of care testing: Urine Dip Bedside Urine Glucose Negative Bedside Urine Bilirubin - Negative Bedside Urine Ketone - Negative Urine Specific [place] 1.015 Bedside Urine Occult Blood - Negative Bedside Urine pH 6.0 Bedside Urine Protein - Negative Bedside Urine Urobilinogen - Negative Bedside Urine Nitrite - Negative Bedside Urine Leukocytes - Negative Esterase Discharge Plan Departure Patient Disposition: Home Clinical Impression: Diverticulitis Discharge Date/Time: 09/08/18 15:50 Interventions: ED Discharge Assessment Last Done: 09/08/18 15:49 Instructions: Diverticulitis, DI for Diverticulitis Activity Restrictions/Additional Instructions: Please stopped taking the Cipro and Flagyl that you started yesterday. Please start taking Augmentin 3 times a day. I am giving a prescription for a different nausea medication to use if needed. Please remember to eat a simple diet. Come back to the emergency department if needed. Please follow-up with your primary care provider. Prescriptions: New amoxicillin-pot clavulanate [Augmentin] 875-125 mg tablet 1 tab PO TID 10 Days Qty: 30 RF: 0 promethazine 25 mg suppository 25 mg [place] Q6H PRN (Reason: nausea and vomiting) Qty: 12 RF: 0 No Action estradiol 1 mg tablet 1 mg PO QDAY Qty: 90 RF: 1 ciprofloxacin HCl 500 mg tablet 500 mg PO BID Qty: 14 RF: 0 metronidazole [Flagyl] 500 mg tablet 500 mg PO TID 10 Days Qty: 30 RF: 0 ondansetron 4 mg tablet,disintegrating 4 mg PO TID-QID PRN (Reason: nausea and vomiting) Qty: 20 RF: 0 oxycodone-acetaminophen [Percocet] 5-325 mg tablet 1 tab PO Q4-6H PRN (Reason: pain) Qty: 20 RF: 0 Referrals: Kevyn Martin MD [Primary Care Provider] - <Jaiden Byrd DO - Last Filed: 09/08/18 16:33> Cosign ED Attending Sury Attestation: I was available for consultation during this patient's emergency department encounter
--- NOTE | 2018-09-08 12:52 | ED_ITS ---
HPI - Abdominal Pain <MIRA Urban - Last Filed: 09/08/18 16:00> General Chief Complaint: Abdominal Pain Stated Complaint: Weakness/Vomiting Time Seen by Provider: 09/08/18 12:32 Source: patient and family Mode of arrival: ambulatory Limitations: no limitations History of Present Illness HPI narrative: Patient is a 48-year-old female was diagnosed yesterday with diverticulitis. She presents with her and is a current everyday smoker. Yesterday she was given prescriptions for Flagyl, Cipro, Percocet and Zofran. She has taken four Zofran since she left the emergency department yesterday. Of note she did she did go bowling last night, ate fried chicken and cheese dip. She complains of severe diarrhea and vomiting. She states that she did read her discharge instructions but thought she would be okay. She denies any fever chest pain or shortness of breath. She denies any dysuria urgency or frequency. Related Data Previous Rx's Medication Instructions Recorded estradiol 1 mg tablet 1 mg PO QDAY #90 tab 05/20/18 ciprofloxacin HCl 500 mg PO BID #14 tab 09/07/18 metronidazole [Flagyl] 500 mg PO TID 10 Days #30 tab 09/07/18 ondansetron 4 mg PO TID-QID PRN #20 tab 09/07/18 oxycodone-acetaminophen [Percocet] 1 tab PO Q4-6H PRN #20 tab 09/07/18 amoxicillin-pot clavulanate 1 tab PO TID 10 Days #30 tab 09/08/18 [Augmentin] promethazine 25 mg MD Q6H PRN #12 each 09/08/18 Allergies Allergy/AdvReac Type Severity Reaction Status Date / Time No Known Drug Allergies Allergy Verified 09/08/18 12:11 Review of Systems <MIRA Urban - Last Filed: 09/08/18 16:00> Review of Systems GENERAL: Denies chills, fatigue, malaise, fever, sweats. HEENT: Denies sinus pain, ear pain, sore throat, difficulty swallowing, dizziness. RESPIRATORY: Denies dyspnea, cough, wheezing, hemoptysis, sputum. CARDIOVASCULAR: Denies chest pain, palpitations, orthopnea, edema, GASTROINTESTINAL: See HPI : Denies dysuria, frequency, incontinence, hematuria, urinary retention. MUSCULOSKELETAL: denies weakness, joint pain, or bony pain SKIN: Denies rash, skin lesions, or other NEUROLOGIC: Denies weakness, headache, numbness, change in speech, confusion, seizures, incoordination. PSYCHIATRIC: No concerning psychosocial issues. 12 point review of systems is negative except for those stated above Exam <MIRA Urban - Last Filed: 09/08/18 16:00> Narrative Exam Narrative: GENERAL: This is a well-nourished, well-developed patient, in no acute distress HEAD: Atraumatic. Normocephalic. No temporal or scalp tenderness. EYES: Pupils equal round and reactive. Extraocular motions intact. No scleral icterus. No injection or drainage. ENT: Nose without bleeding, purulent drainage or septal hematoma. Throat without erythema, tonsillar hypertrophy or exudate. Uvula midline. Airway patent. NECK: Trachea midline. No JVD or lymphadenopathy. Supple, nontender, no meningeal signs. CARDIOVASCULAR: Regular rate and rhythm without murmurs, gallops, or rubs. RESPIRATORY: Clear to auscultation. Breath sounds equal bilaterally. No wheezes , rales, or rhonchi. GASTROINTESTINAL: Abdomen soft, diffusely tender, nondistended. No hepato- splenomegaly, or palpable masses. No guarding. Hyperactive bowel sounds all 4 quadrants. EXTREMITIES: No clubbing, cyanosis, or edema. No joint tenderness, effusion, or edema noted. BACK: Nontender without deformity or crepitance. No flank tenderness. NEURO: AOx3. SKIN: No rash or erythema. Initial Vital Signs Initial Vital Signs: Vital Signs Pulse Rate 87 09/08/18 12:08 Respiratory Rate 14 09/08/18 12:08 Blood Pressure 150/107 H 09/08/18 12:08 Pulse Oximetry 98 09/08/18 12:08 <Jaiden Byrd DO - Last Filed: 09/08/18 16:33> Initial Vital Signs Initial Vital Signs: Vital Signs Pulse Rate 87 09/08/18 12:08 Respiratory Rate 14 09/08/18 12:08 Blood Pressure 150/107 H 09/08/18 12:08 Pulse Oximetry 98 09/08/18 12:08 Course <MIRA Urban - Last Filed: 09/08/18 16:00> Course Narrative: I checked on the patient multiple times throughout her stay in the emergency department. Orders Ordered: ED Orders 09/08/18 12:51 Complete Blood Count AUTO DIFF Stat Comprehensive Metabolic Panel Stat Lipase Stat Discontinued Medications Amoxicillin/Clavulanate Potassium (Augmentin 875-125 Mg) 1 tab PO NOW ONE Stop: 09/08/18 14:44 Last Admin: 09/08/18 15:07 Dose: 1 tab Sodium Chloride (Normal Saline 0.9%) 1,000 mls @ 1,000 mls/hr IV BOLUS ONE Stop: 09/08/18 13:20 Last Infusion: 09/08/18 14:18 Dose: 0 mls/hr Admin: 09/08/18 13:00 Dose: 1,000 mls/hr Sodium Chloride (Normal Saline 0.9%) 1,000 mls @ 1,000 mls/hr IV BOLUS ONE Stop: 09/08/18 14:57 Last Infusion: 09/08/18 15:21 Dose: 0 mls/hr Admin: 09/08/18 14:17 Dose: 1,000 mls/hr Morphine Sulfate (Morphine) 2 mg IV NOW ONE Stop: 09/08/18 13:59 Last Admin: 09/08/18 14:17 Dose: 2 mg Ondansetron HCl (Zofran) 4 mg IV NOW ONE Stop: 09/08/18 12:22 Last Admin: 09/08/18 13:00 Dose: 4 mg Promethazine HCl (Phenadoz) 25 mg MD NOW ONE Stop: 09/08/18 13:33 Last Admin: 09/08/18 13:47 Dose: 25 mg Vital Signs - 8 hr 09/08/18 12:08 09/08/18 13:00 09/08/18 13:37 Pulse Rate 87 70 64 Respiratory Rate 14 16 Blood Pressure 150/107 H Blood Pressure [Right Arm] 123/78 129/87 Pulse Oximetry 98 98 97 09/08/18 14:21 09/08/18 15:02 Pulse Rate 70 66 Respiratory Rate 18 16 Blood Pressure Blood Pressure [Right Arm] 126/80 127/78 Pulse Oximetry 99 97 <Jaiden Byrd DO - Last Filed: 09/08/18 16:33> Orders Ordered: ED Orders 09/08/18 12:51 Complete Blood Count AUTO DIFF Stat Comprehensive Metabolic Panel Stat Lipase Stat Discontinued Medications Amoxicillin/Clavulanate Potassium (Augmentin 875-125 Mg) 1 tab PO NOW ONE Stop: 09/08/18 14:44 Last Admin: 09/08/18 15:07 Dose: 1 tab Sodium Chloride (Normal Saline 0.9%) 1,000 mls @ 1,000 mls/hr IV BOLUS ONE Stop: 09/08/18 13:20 Last Infusion: 09/08/18 14:18 Dose: 0 mls/hr Admin: 09/08/18 13:00 Dose: 1,000 mls/hr Sodium Chloride (Normal Saline 0.9%) 1,000 mls @ 1,000 mls/hr IV BOLUS ONE Stop: 09/08/18 14:57 Last Infusion: 09/08/18 15:21 Dose: 0 mls/hr Admin: 09/08/18 14:17 Dose: 1,000 mls/hr Morphine Sulfate (Morphine) 2 mg IV NOW ONE Stop: 09/08/18 13:59 Last Admin: 09/08/18 14:17 Dose: 2 mg Ondansetron HCl (Zofran) 4 mg IV NOW ONE Stop: 09/08/18 12:22 Last Admin: 09/08/18 13:00 Dose: 4 mg Promethazine HCl (Phenadoz) 25 mg MD NOW ONE Stop: 09/08/18 13:33 Last Admin: 09/08/18 13:47 Dose: 25 mg Vital Signs - 8 hr 09/08/18 12:08 09/08/18 13:00 09/08/18 13:37 Pulse Rate 87 70 64 Respiratory Rate 14 16 Blood Pressure 150/107 H Blood Pressure [Right Arm] 123/78 129/87 Pulse Oximetry 98 98 97 09/08/18 14:21 09/08/18 15:02 Pulse Rate 70 66 Respiratory Rate 18 16 Blood Pressure Blood Pressure [Right Arm] 126/80 127/78 Pulse Oximetry 99 97 MDM - Abdominal Pain <MIRA Urban - Last Filed: 09/08/18 16:00> Lab Data Result diagrams: 09/08/18 12:51 09/08/18 12:51 Lab Results 09/08/18 09/08/18 Range/Units 12:51 12:51 WBC 8.7 (4.5-11.0) X10^3/uL RBC 4.03 (4.0-5.2) X10^6/uL Hgb 15.2 (12.0-16.0) g/dL Hct 43.6 (36-46) % MCV 108.2 H (80-100) fL MCH 37.7 H (26-34) PG MCHC 34.8 (30-36) % RDW 12.5 (11.6-14.8) % Plt Count 222 (150-400) X10^3/uL Neut % (Auto) 69.2 (50-75) % Lymph % (Auto) 25.0 (25-40) % Davis % (Auto) 4.9 (3-14) % Eos % (Auto) 0.6 L (2-4) % Baso % (Auto) 0.3 (0-2) % Neut # (Auto) 6000 (3245-5344) /uL Sodium 141 (137-145) mmol/L Potassium 5.6 H (3.4-5.1) mmol/L Chloride 104 (98-107) mmol/L Carbon Dioxide 20 L (22-32) mmol/L BUN 11 (7-17) mg/dL Creatinine 0.70 (0.52-1.04) mg/dL Estimated GFR > 60.0 (>60) mL/min BUN/Creatinine Ratio 15.7 (6-22) Glucose 89 (70-100) mg/dL Calcium 9.3 (8.4-10.2) mg/dL Total Bilirubin 1.3 (0.2-1.3) mg/dL AST 52 H (14-36) IU/L ALT 29 (9-52) IU/L Alkaline Phosphatase 54 (38-126) U/L Total Protein 8.4 H (6.3-8.2) g/dL Albumin 5.2 H (3.5-5.0) g/dL Globulin 3.2 (1.7-4.1) g/dL Albumin/Globulin Ratio 1.6 (1.0-2.8) Lipase 57 (23-300) U/L Point of care testing: Urine Dip Bedside Urine Glucose Negative Bedside Urine Bilirubin - Negative Bedside Urine Ketone - Negative Urine Specific [place] 1.015 Bedside Urine Occult Blood - Negative Bedside Urine pH 6.0 Bedside Urine Protein - Negative Bedside Urine Urobilinogen - Negative Bedside Urine Nitrite - Negative Bedside Urine Leukocytes - Negative Esterase MDM Narrative Medical decision making narrative: The patient is a 48-year-old female recent diagnosis of diverticulitis who comes in today complaining of nausea and vomiting. She admits to eating fried chicken and bigger cheese last night despite her previously discussed discharge instructions. Today we did basic labs as well as IV rehydration. She received 2 L normal saline emergency department as well as anti emetics and pain medicine. I am changing her regimen from Flagyl and Cipro to Augmentin to see if that is better tolerated. I discussed at length that she needs to stop the Flagyl and Cipro and start the Augmentin. I gave her a prescription for Phenergan suppositories as well. The patient felt much improved after 2 L of IVF and was able tolerate p.o. fluids, p.o. solids and her 1st dose of Augmentin. I discussed at length with her I simple diet as well as return precautions the emergency department and follow up with primary care provider. <Jaiden Byrd, DO - Last Filed: 09/08/18 16:33> Lab Data Lab Results 09/08/18 09/08/18 Range/Units 12:51 12:51 WBC 8.7 (4.5-11.0) X10^3/uL RBC 4.03 (4.0-5.2) X10^6/uL Hgb 15.2 (12.0-16.0) g/dL Hct 43.6 (36-46) % MCV 108.2 H (80-100) fL MCH 37.7 H (26-34) PG MCHC 34.8 (30-36) % RDW 12.5 (11.6-14.8) % Plt Count 222 (150-400) X10^3/uL Neut % (Auto) 69.2 (50-75) % Lymph % (Auto) 25.0 (25-40) % Davis % (Auto) 4.9 (3-14) % Eos % (Auto) 0.6 L (2-4) % Baso % (Auto) 0.3 (0-2) % Neut # (Auto) 6000 (1698-6908) /uL Sodium 141 (137-145) mmol/L Potassium 5.6 H (3.4-5.1) mmol/L Chloride 104 (98-107) mmol/L Carbon Dioxide 20 L (22-32) mmol/L BUN 11 (7-17) mg/dL Creatinine 0.70 (0.52-1.04) mg/dL Estimated GFR > 60.0 (>60) mL/min BUN/Creatinine Ratio 15.7 (6-22) Glucose 89 (70-100) mg/dL Calcium 9.3 (8.4-10.2) mg/dL Total Bilirubin 1.3 (0.2-1.3) mg/dL AST 52 H (14-36) IU/L ALT 29 (9-52) IU/L Alkaline Phosphatase 54 (38-126) U/L Total Protein 8.4 H (6.3-8.2) g/dL Albumin 5.2 H (3.5-5.0) g/dL Globulin 3.2 (1.7-4.1) g/dL Albumin/Globulin Ratio 1.6 (1.0-2.8) Lipase 57 (23-300) U/L Point of care testing: Urine Dip Bedside Urine Glucose Negative Bedside Urine Bilirubin - Negative Bedside Urine Ketone - Negative Urine Specific [place] 1.015 Bedside Urine Occult Blood - Negative Bedside Urine pH 6.0 Bedside Urine Protein - Negative Bedside Urine Urobilinogen - Negative Bedside Urine Nitrite - Negative Bedside Urine Leukocytes - Negative Esterase Discharge Plan Departure Patient Disposition: Home Clinical Impression: Diverticulitis Discharge Date/Time: 09/08/18 15:50 Interventions: ED Discharge Assessment Last Done: 09/08/18 15:49 Instructions: Diverticulitis, DI for Diverticulitis Activity Restrictions/Additional Instructions: Please stopped taking the Cipro and Flagyl that you started yesterday. Please start taking Augmentin 3 times a day. I am giving a prescription for a different nausea medication to use if needed. Please remember to eat a simple diet. Come back to the emergency department if needed. Please follow-up with your primary care provider. Prescriptions: New amoxicillin-pot clavulanate [Augmentin] 875-125 mg tablet 1 tab PO TID 10 Days Qty: 30 RF: 0 promethazine 25 mg suppository 25 mg MD Q6H PRN (Reason: nausea and vomiting) Qty: 12 RF: 0 No Action estradiol 1 mg tablet 1 mg PO QDAY Qty: 90 RF: 1 ciprofloxacin HCl 500 mg tablet 500 mg PO BID Qty: 14 RF: 0 metronidazole [Flagyl] 500 mg tablet 500 mg PO TID 10 Days Qty: 30 RF: 0 ondansetron 4 mg tablet,disintegrating 4 mg PO TID-QID PRN (Reason: nausea and vomiting) Qty: 20 RF: 0 oxycodone-acetaminophen [Percocet] 5-325 mg tablet 1 tab PO Q4-6H PRN (Reason: pain) Qty: 20 RF: 0 Referrals: Kevyn Martin MD [Primary Care Provider] - <Jaiden Byrd DO - Last Filed: 09/08/18 16:33> Cosign ED Attending Sury Attestation: I was available for consultation during this patient's emergency department encounter
[2018-09-08 13:00] VITALS: BP 123/78; PULSE 70; O2SAT 98
[2018-09-08 13:00] LABS: Add Manual Diff / Slide Review NO; Basophils Percent Auto 0.3 % (0-2); Eosinophils Percent Auto 0.6 % (2-4); Hematocrit 43.6 % (36-46); Hemoglobin 15.2 g/dL (12.0-16.0); Mean Corpuscular HGB Conc 34.8 % (30-36); Mean Corpuscular Hemoglobin 37.7 PG (26-34); Mean Corpuscular Volume 108.2 fL (80-100); Monocytes Percent Auto 4.9 % (3-14); Neutrophils Absolute Auto 6000 /uL (1500-7000); Neutrophils Percent Auto 69.2 % (50-75); Platelet Count 222 X10^3/uL (150-400); Red Blood Cell Count 4.03 X10^6/uL (4.0-5.2); Red Cell Distribution Width 12.5 % (11.6-14.8); White Blood Cell Count 8.7 X10^3/uL (4.5-11.0)
[2018-09-08] MEDS: SODIUM CHLORIDE 0.9% 1,000 ML 1000 ML IV ×2 (13:00→14:17)
[2018-09-08] MEDS: ONDANSETRON 4 MG/2 ML INJ IV (13:00)
[2018-09-08 13:11] LABS: Alanine Aminotransferase 29 IU/L (9-52); Albumin 5.2 g/dL (3.5-5.0); Albumin Globulin Ratio 1.6 (1.0-2.8); Alkaline Phosphatase 54 U/L (38-126); Aspartate Aminotransferase 52 IU/L (14-36); BUN Creatinine Ratio 15.7 (6-22); Bilirubin Total 1.3 mg/dL (0.2-1.3); Blood Urea Nitrogen 11 mg/dL (7-17); Calcium 9.3 mg/dL (8.4-10.2); Carbon Dioxide 20 mmol/L (22-32); Chloride 104 mmol/L (98-107); Estimated Glomerular Filt Rate > 60.0 mL/min (>60); Globulin 3.2 g/dL (1.7-4.1); Glucose 89 mg/dL (70-100); HEMOLYSIS 189 (0-50); Lipase 57 U/L (23-300); Potassium 5.6 mmol/L (3.4-5.1); Sodium 141 mmol/L (137-145); Total Protein 8.4 g/dL (6.3-8.2)
[2018-09-08 13:37] VITALS: BP 129/87; PULSE 64; RESP 16; O2SAT 97
[2018-09-08] MEDS: PROMETHAZINE 25 MG SUPP PR (13:47)
[2018-09-08] MEDS: MORPHINE 4 MG/ML INJ 2 MG IV (14:17)
--- NOTE | 2018-09-08 14:17 | PC.NURSE ---
morphine 2mg/ml not scanning, provider aware.
[2018-09-08 14:21] VITALS: BP 126/80; PULSE 70; RESP 18; O2SAT 99
[2018-09-08 15:02] VITALS: BP 127/78; PULSE 66; RESP 16; O2SAT 97
[2018-09-08] MEDS: AMOXICILLIN/CLAV 875/125 MG 1 TAB PO (15:07)
== END 2018-09-08 15:50 | disposition home or self-care (01) ==
PROVIDERS: Emergency Provider Nurse Practitioner Family; Family Provider Transplant Surgery; PCP Family Medicine
DX: K57.92 Diverticulitis of intestine, part unspecified, without perforation or abscess without bleeding (principal)
CPT/HCPCS: 36591; 80053; 81003; 83690; 85025; 96361; 96374; 96375; 99283; 99284; J2270; J2405

== ENCOUNTER → 2018-09-15 13:28 | Outpatient (CLI) | payer MEDICARE, SELFPAY ==
--- NOTE | 2018-09-15 | DI.MG.S_ITS ---
BILATERAL DIGITAL SCREENING MAMMOGRAM 3D/2D WITH CAD: 09/15/2018 CLINICAL: Routine screening. Comparison is made to exams dated: 08/23/2017 mammogram, 04/04/2015 mammogram, and 08/08/2016 mammogram - [facility]. There are scattered fibroglandular elements in both breasts. Current study was also evaluated with a Computer Aided Detection (CAD) system. No significant masses, calcifications, or other findings are seen in either breast. There has been no significant interval change. IMPRESSION: NEGATIVE There is no mammographic evidence of malignancy. A 1 year screening mammogram is recommended. This exam was interpreted at Station ID: [id number]. NOTE: For mammograms, a report in lay terms will be sent to the patient. Approximately 15% of breast malignancies will not be visualized mammographically. In the management of a palpable breast mass, a negative mammogram must not discourage biopsy of a clinically suspicious lesion. Electronically Signed By: Baylee fried/britta:09/15/2018 16:35:32 letter sent: Normal Exam ACR BI-RADS Category 1: Negative [id number]
== END ==
PROVIDERS: Family Provider Transplant Surgery; PCP Family Medicine; Visit Provider Family Medicine
DX: Z12.31 Encounter for screening mammogram for malignant neoplasm of breast (principal)
CPT/HCPCS: 77063; 77067

== ENCOUNTER → 2018-10-09 11:11 | Outpatient (CLI) | payer MEDICARE, SELFPAY ==
[2018-10-09 12:03] LABS: Add Manual Diff / Slide Review NO; Basophils Absolute Auto 0 /uL (0-100); Basophils Percent Auto 0.3 % (0-2); Eosinophils Absolute Auto 100 /uL (0-450); Eosinophils Percent Auto 1.1 % (2-4); Hematocrit 45.9 % (36-46); Hemoglobin 15.7 g/dL (12.0-16.0); Lymphocytes Absolute Auto 2400 /uL (1100-4500); Lymphocytes Percent Auto 35.8 % (25-40); Mean Corpuscular HGB Conc 34.3 % (30-36); Mean Corpuscular Hemoglobin 36.5 PG (26-34); Mean Corpuscular Volume 106.5 fL (80-100); Monocytes Absolute Auto 400 /uL (0-900); Monocytes Percent Auto 6.3 % (3-14); Neutrophils Absolute Auto 3900 /uL (1500-7000); Neutrophils Percent Auto 56.5 % (50-75); Platelet Count 269 X10^3/uL (150-400); Red Blood Cell Count 4.31 X10^6/uL (4.0-5.2); Red Cell Distribution Width 12.2 % (11.6-14.8); White Blood Cell Count 6.8 X10^3/uL (4.5-11.0)
[2018-10-09 12:10] LABS: BUN Creatinine Ratio 24.4 (6-22); Blood Urea Nitrogen 22 mg/dL (7-17); Carbon Dioxide 23 mmol/L (22-32); Chloride 105 mmol/L (98-107); Estimated Glomerular Filt Rate > 60.0 mL/min (>60); Glucose 91 mg/dL (70-100); HEMOLYSIS < 15 (0-50); Potassium 4.8 mmol/L (3.4-5.1); Sodium 139 mmol/L (137-145)
== END ==
PROVIDERS: PCP Family Medicine; Visit Provider Registered Nurse
DX: R10.32 Left lower quadrant pain (principal)
CPT/HCPCS: 36415; 80048; 85025

== ENCOUNTER → 2018-10-09 11:47 | Outpatient (CLI) | payer MEDICARE, SELFPAY ==
--- NOTE | 2018-10-09 11:54 | DI.CT.S_ITS ---
PROCEDURE: CT ABDOMEN PELVIS W CON INDICATIONS: LEFT LOWER QUADRANT PAIN TECHNIQUE: After the administration of oral and intravenous contrast, 5 mm thick sections acquired from the diaphragms to the symphysis. 5 mm thick coronal and sagittal reformats were performed. For radiation dose reduction, the following was used: automated exposure control, adjustment of mA and/or kV according to patient size. COMPARISON: [facility], CT, ABDOMEN/PELVIS WITH CONTRAST, 12/18/2013, 9:39. FINDINGS: Image quality: Excellent. ABDOMEN: Lung bases: Lung bases are clear. Heart size is normal. Solid organs: Liver is normal in size and enhancement. Two small liver cysts again see, present also in 2014. Gallbladder has been resected. Biliary system is non-dilated. Pancreas enhances normally. Spleen is normal in size and enhancement. No adrenal nodules. Kidneys are normal in size and enhancement, without hydronephrosis. Peritoneum and bowel: Stomach, small bowel, and colon loops are normal in caliber and wall thickness. No free fluid or air. Nodes and vessels: No retroperitoneal or mesenteric adenopathy. Aorta and inferior vena cava are normal in caliber. Miscellaneous: No ventral hernias. PELVIS: Genitourinary: Bladder wall thickness is normal. Prior hysterectomy. Miscellaneous: No inguinal hernias or adenopathy. Bones: No suspicious bony lesions. No vertebral body compression fractures. IMPRESSION: No source of left lower quadrant pain is found. Stable two small hepatic cysts, also seen in 2014. Mild sigmoid diverticulosis without acute diverticulitis. Dictated by: Radnolph Fisher M.D. on 10/09/2018 at 13:05 Approved by: Randolph Fisher M.D. on 10/09/2018 at 13:11
== END ==
PROVIDERS: Family Provider Transplant Surgery; PCP Family Medicine; Visit Provider Registered Nurse
DX: R10.32 Left lower quadrant pain (principal); K57.30 Diverticulosis of large intestine without perforation or abscess without bleeding; K76.89 Other specified diseases of liver
CPT/HCPCS: 36415; 74177; 80048; 85025; Q9967

== ENCOUNTER → 2024-11-14 09:09 | Outpatient (CLI) | payer MEDICARE, SELFPAY ==
[2024-11-14 10:12] LABS: Influenza A - CEPHEID Flu A NEGATIVE (NEGATIVE); Influenza B - CEPHEID Flu B NEGATIVE (NEGATIVE); Respiratory Syncytial Virus Negative (Negative)
[2024-11-14 10:30] LABS: COVID-19 CEPHEID 4-PLEX PCR Negative (Negative)
== END ==
PROVIDERS: Family Provider Transplant Surgery; PCP Family Medicine; Visit Provider Physician Assistant Surgical
DX: R05.9 Cough, unspecified (principal); J02.9 Acute pharyngitis, unspecified
CPT/HCPCS: 0241U; 87070

== ENCOUNTER → 2025-02-04 10:02 | Outpatient (CLI) | payer MEDICARE, SELFPAY ==
[2025-02-04 10:49] LABS: Add Manual Diff / Slide Review NO; Basophils Absolute Auto 0 /uL (0-100); Basophils Percent Auto 0.4 % (0-2); Eosinophils Absolute Auto 0 /uL (0-450); Eosinophils Percent Auto 0.6 % (2-4); Hemoglobin 14.7 g/dL (12.0-16.0); Lymphocytes Absolute Auto 2800 /uL (1100-4500); Lymphocytes Percent Auto 35.1 % (25-40); Mean Corpuscular HGB Conc 34.1 % (30-36); Mean Corpuscular Hemoglobin 34.2 PG (26-34); Mean Corpuscular Volume 100.5 fL (80-100); Monocytes Absolute Auto 500 /uL (0-900); Monocytes Percent Auto 6.1 % (3-14); Neutrophils Absolute Auto 4700 /uL (1500-7000); Neutrophils Percent Auto 57.8 % (50-75); Platelet Count 317 X10^3/uL (150-400); Red Blood Cell Count 4.28 X10^6/uL (4.0-5.2); Red Cell Distribution Width 12.3 % (11.6-14.8); White Blood Cell Count 8.1 X10^3/uL (4.5-11.0)
== END ==
LOC: LAB 10:05
PROVIDERS: Family Provider Transplant Surgery; PCP Family Medicine; Referring Provider Physician Assistant; Visit Provider Physician Assistant
DX: I10 Essential (primary) hypertension (principal); L30.9 Dermatitis, unspecified
CPT/HCPCS: 36415; 85025

== ENCOUNTER 2025-03-02 10:44 | Emergency (ER) | payer MEDICARE, SELFPAY ==
[2025-03-02 10:51] VITALS: BP 113/77; PULSE 102; RESP 19; TEMP 36.9; O2SAT 98; BMI 25.2
--- NOTE | 2025-03-02 11:05 | EKG_ITS ---
[address] [id number] Test Date: 2025-03-02 Pat Name: Bethany Sprague Department: Room: Gender: Female [employer] Winder: DRE : 1970 Requested By: Order Number: [id number] Reading MD: Wagner Merino MD Measurements Intervals [place] Rate: 90 P: 44 VA: 122 QRS: 54 QRSD: 74 T: 45 QT: 348 QTc: 425 Interpretive Statements Normal sinus rhythm Electronically Signed On 03-02-2025 12:11:18 PDT by Wagner Merino MD
[2025-03-02] MEDS: ONDANSETRON 4 MG/2 ML INJ IV ×2 (11:25→15:16)
[2025-03-02 11:43] LABS: Add Manual Diff / Slide Review NO; Basophils Absolute Auto 0 /uL (0-100); Basophils Percent Auto 0.2 % (0-2); Eosinophils Absolute Auto 100 /uL (0-450); Eosinophils Percent Auto 0.7 % (2-4); Hematocrit 45.1 % (36-46); Hemoglobin 15.3 g/dL (12.0-16.0); Lymphocytes Absolute Auto 2000 /uL (1100-4500); Lymphocytes Percent Auto 17.6 % (25-40); Mean Corpuscular HGB Conc 33.8 % (30-36); Mean Corpuscular Volume 100.6 fL (80-100); Monocytes Absolute Auto 700 /uL (0-900); Monocytes Percent Auto 6.4 % (3-14); Neutrophils Absolute Auto 8600 /uL (1500-7000); Neutrophils Percent Auto 75.1 % (50-75); Platelet Count 353 X10^3/uL (150-400); Red Blood Cell Count 4.49 X10^6/uL (4.0-5.2); Red Cell Distribution Width 12.4 % (11.6-14.8); White Blood Cell Count 11.5 X10^3/uL (4.5-11.0)
[2025-03-02 11:44] LABS: Alanine Aminotransferase 25 IU/L (<35); Albumin 5.1 g/dL (3.5-5.0); Albumin Globulin Ratio 1.9 (1.0-2.8); Alkaline Phosphatase 70 U/L (38-126); Aspartate Aminotransferase 24 IU/L (14-36); BUN Creatinine Ratio 29.3 (6-22); Bilirubin Total 1.1 mg/dL (0.2-1.3); Blood Urea Nitrogen 22 mg/dL (7-17); Calcium 9.3 mg/dL (8.4-10.2); Carbon Dioxide 20 mmol/L (22-32); Chloride 106 mmol/L (98-107); Estimated Glomerular Filt Rate > 60 mL/min (>60); Globulin 2.7 g/dL (1.7-4.1); Glucose 103 mg/dL (70-99); HEMOLYSIS < 15 (0-50); Lipase 38 U/L (23-300); Potassium 4.3 mmol/L (3.4-5.1); Sodium 139 mmol/L (137-145); Total Protein 7.8 g/dL (6.3-8.2)
--- NOTE | 2025-03-02 12:36 | DI.CT.S_ITS ---
PROCEDURE: CT ABDOMEN PELVIS W CON INDICATIONS: diarrhea, lower abd tenderness TECHNIQUE: After the administration of intravenous contrast, axial sections acquired from the lung bases to the pubic symphysis. Coronal and sagittal reformats were performed. For radiation dose reduction, the following was used: automated exposure control, adjustment of mA and/or kV according to patient size. COMPARISON: [facility], CT, CT ABDOMEN PELVIS WITH CONTRAST, 12/03/2023, 20:31. [facility], CT, CT ABDOMEN PELVIS W CON, 10/09/2018, 12:37. FINDINGS: Image quality: Diagnostic. Lower Chest: No significant findings. ABDOMEN: Liver: No solid mass. Gallbladder: Surgically absent. Biliary ducts: No biliary dilation. Pancreas: No ductal dilation. Spleen: Size is within normal limits. Adrenal Glands: No adrenal nodules. Kidneys and Ureters: No hydronephrosis. No solid mass. No complex renal cystic lesion which requires follow up. Stomach and Bowel: Normal colonic caliber, without significant wall thickening. Sigmoid anastomosis. Diverticulosis without evidence of acute diverticulitis. Fluid- filled loops of small bowel within the pelvis and fluid filling the cecum. Normal appendix. Peritoneum: No abnormal intraperitoneal fluid. No free air. Ventral Wall: No significant ventral hernia. Abdominal Nodes: No retroperitoneal or mesenteric adenopathy by size criteria. Vessels: Aorta and inferior vena cava are normal in size. PELVIS: Pelvic Organs: Hysterectomy. Bladder: No bladder wall thickening, accounting for underdistention. Pelvic Nodes: No enlarged lymph nodes. Miscellaneous: No inguinal hernias are seen. Bones: No aggressive osseous abnormality. Mild degenerative changes. IMPRESSION: 1. Fluid-filled loops of small bowel within the pelvis as well as fluid filling the cecum. Findings may represent an enterocolitis. 2. Otherwise, no acute findings within the abdomen pelvis. 3. Please see above for additional findings. Dictated by: Jesse Wilson M.D. on 03/02/2025 at 13:51 Approved by: Jesse Wilson M.D. on 03/02/2025 at 14:05
--- NOTE | 2025-03-02 12:40 | PC.NURSE ---
Pt reports since 2pm yesterday she has been violently vomiting . Pt also reports some diarrhea. Pt reports leg ramps and states her kidneys are hurting but reports it is hard to pinpoint where this pain is. Pt denies urinary complaints for the most part---but states her urine output appears decreased. Pt reports she had kidney stone w/ surgery and previous bowel resection (in 2019 d/t diverticulitis that turned into abscess). Point tenderness in LLQ. Pt states she is having cramping but does not feel obstructed. Pt reports IV zofran has helped her nausea.
[2025-03-02 14:01] LABS: Urine Volume 10mL (spun)
[2025-03-02 14:03] LABS: Bacteria Urine None Seen; Culture Indicated Urine Cult Not Indicated; RBC Urine None Seen (0-5/HPF); Squamous Epithelial Cell Urine 0-1 /HPF (0-5/HPF); WBC Urine None Seen (0-5/HPF)
--- NOTE | 2025-03-02 15:14 | ED.NAVMDI ---
HPI - Nausea/Vomiting/Diarrhea <Jessica Shoemaker PA-C - Last Filed: 03/02/25 15:19> General Chief complaint: Abdominal Pain Stated complaint: Vomiting x 1 day can't keep anything down Time Seen by Provider: 03/02/25 12:19 Source: patient Mode of arrival: EMS History of Present Illness HPI Narrative: 54-year-old female with past medical history diverticulitis, hyperlipidemia, status post partial colectomy presents to the ED with 2 days of nausea, vomiting, diarrhea. Patient states her symptoms started acutely with nausea and vomiting, followed by diarrhea. Patient denies fever, chills, chest pain, shortness of breath, abdominal pain, dysuria, lightheadedness, dizziness, syncope. Patient does endorse bilateral flank pain. Patient states she has a distant history of kidney stones about 10 years ago. Is concerned about her symptoms since she had to have a partial colectomy following a bout of complicated diverticulitis. In the ED, patient was given a dose of Zofran which is effectively controlled her nausea and vomiting. Related Data Home Medications ?Medication ?Instructions ?Recorded ?Confirmed hydroxyzine pamoate 25 mg capsule 25 mg PO 3XD PRN itch 11/14/24 11/14/24 semaglutide (weight loss) SUBCUT 11/14/24 11/14/24 Previous Rx's ?Medication ?Instructions ?Recorded estradiol 1 mg tablet 1 mg PO QDAY #90 tabs 12/01/18 benzonatate 200 mg capsule 200 mg PO BID PRN cough #30 caps 11/14/24 ondansetron 4 mg disintegrating 4 mg PO Q8H PRN nausea and 03/02/25 tablet vomiting #14 tabs Allergies Allergy/AdvReac Type Severity Reaction Status Date / Time No Known Drug Allergies Allergy Verified 03/02/25 10:52 Review of Systems <Jessica Shoemaker PA-C - Last Filed: 03/02/25 15:19> Constitutional Constitutional: Denies chills, Denies fatigue, Denies fever(s), Denies frequent falls, Denies lethargy and Denies weakness Eyes Eyes: Denies change in vision, Denies eye discharge, Denies irritation and Denies loss of vision ENT Ears, Nose, Mouth, and Throat: Denies change in voice, Denies dizziness, Denies neck pain, Denies sore throat and Denies throat swelling Cardiovascular Cardiovascular: Denies chest pain, Denies irregular heart rhythm, Denies lightheadedness, Denies palpitations, Denies dyspnea, Denies dyspnea on exertion and Denies orthopnea Respiratory Respiratory: Denies cough, Denies dyspnea, Denies dyspnea on exertion and Denies wheezing Gastrointestinal Gastrointestinal: Denies abdominal pain, Denies change in bowel habits, Reports diarrhea, Reports nausea and Reports vomiting Musculoskeletal Musculoskeletal: Denies neck pain and Denies numbness Integumentary/Breasts Skin/Breast: Denies pruritus, Denies erythema, Denies rash and Denies wounds Neurologic Neurologic: Denies behavioral changes, Denies confusion, Denies dizziness, Denies frequent falls, Denies loss of vision, Denies numbness and Denies weakness Psychiatric Psychiatric: Denies anxiety, Denies behavioral changes, Denies confusion, Denies depression, Denies homicidal ideation and Denies suicidal ideation Endocrine Endocrine: Denies fatigue, Denies flushing and Denies palpitations Hematologic/Lymphatic Hematologic/Lymphatic: Denies easy bruising Allergic/Immunologic Allergic/Immunologic: Denies urticaria, Denies throat swelling and Denies wheezing Patient History <Jessica Shoemaker PA-C - Last Filed: 03/02/25 15:19> Medical History (Updated 03/17/25 @ 00:00 by ) Diverticulitis Social History Smoking Status: Current some day smoker alcohol intake: former substance use type: marijuana Smoking Status: Current some day smoker tobacco type: cigarettes and vaping alcohol intake frequency: 0-2 drinks per day Exam <Jessica Shoemaker PA-C - Last Filed: 03/02/25 15:19> Narrative Exam Narrative: Const General:?cooperative, healthy appearing and comfortable [facility] Head:?normal to inspection Ears:?hearing grossly normal bilaterally Nose:?external nose normal Face and sinus:?normal facial exam and sinuses nontender Mouth:?oral mucosae normal Throat:?posterior oropharynx normal Eyes General:?appearance normal, both eyes and all related structures Neck Neck:?normal visual inspection and no lymphadenopathy noted Resp Effort & Inspection:?normal respiratory effort Auscultation:?clear to auscultation bilaterally Cardio Rate:?regular rate Rhythm:?regular rhythm GI Abdomen is soft, nondistended. Tender to palpation in the lower quadrants. Mild bilateral CVA tenderness. Neuro General:?patient alert, patient awake and patient oriented x3 Initial Vital Signs Initial Vital Signs: Vital Signs Temperature 98.5 F 03/02/25 10:51 Pulse Rate 102 H 03/02/25 10:51 Respiratory Rate 19 03/02/25 10:51 Blood Pressure 113/77 03/02/25 10:51 Pulse Oximetry 98 03/02/25 10:51 Oxygen Delivery Method Room Air 03/02/25 10:51 <Nicolás Gómez MD - Last Filed: 03/18/25 06:57> Initial Vital Signs Initial Vital Signs: Vital Signs Temperature 98.5 F 03/02/25 10:51 Pulse Rate 102 H 03/02/25 10:51 Respiratory Rate 19 03/02/25 10:51 Blood Pressure 113/77 03/02/25 10:51 Pulse Oximetry 98 03/02/25 10:51 Oxygen Delivery Method Room Air 03/02/25 10:51 Course <Jessica Shoemaker PA-C - Last Filed: 03/02/25 15:19> Orders Ordered: Discontinued Medications Ondansetron HCl (Ondansetron 4 Mg/2 Ml Inj) 4 mg IV NOW PRN PRN Reason: Nausea And Vomiting Last Admin: 03/02/25 11:25 Dose: 4 mg Documented By: COSTA Ondansetron HCl (Ondansetron 4 Mg Odt) 4 mg PO NOW PRN PRN Reason: Nausea And Vomiting Ondansetron HCl (Ondansetron 4 Mg/2 Ml Inj) 4 mg IV NOW ONE Stop: 03/02/25 15:06 Last Admin: 03/02/25 15:16 Dose: 4 mg Documented By: KW Vital Signs Vital signs: Vital Signs - 8 hr 03/02/25 10:51 Temperature 98.5 F Pulse Rate 102 H Respiratory Rate 19 Blood Pressure 113/77 Pulse Oximetry 98 Oxygen Delivery Method Room Air <Nicolás Gómez MD - Last Filed: 03/18/25 06:57> Orders Ordered: Discontinued Medications Ondansetron HCl (Ondansetron 4 Mg/2 Ml Inj) 4 mg IV NOW PRN PRN Reason: Nausea And Vomiting Last Admin: 03/02/25 11:25 Dose: 4 mg Documented By: COSTA Ondansetron HCl (Ondansetron 4 Mg Odt) 4 mg PO NOW PRN PRN Reason: Nausea And Vomiting Ondansetron HCl (Ondansetron 4 Mg/2 Ml Inj) 4 mg IV NOW ONE Stop: 03/02/25 15:06 Last Admin: 03/02/25 15:16 Dose: 4 mg Documented By: BRYANT Vital Signs Vital signs: Vital Signs - 8 hr 03/02/25 10:51 Temperature 98.5 F Pulse Rate 102 H Respiratory Rate 19 Blood Pressure 113/77 Pulse Oximetry 98 Oxygen Delivery Method Room Air MDM - Nausea/Vomiting/Diarrhea <Jessica Shoemaker PA-C - Last Filed: 03/02/25 15:19> Lab Data 03/02/25 11:21 03/02/25 11:21 Labs: Lab Results 03/02/25 03/02/25 Range/Units 11:21 13:36 WBC 11.5 H (4.5-11.0) X10^3/uL RBC 4.49 (4.0-5.2) X10^6/uL Hgb 15.3 (12.0-16.0) g/dL Hct 45.1 (36-46) % MCV 100.6 H (80-100) fL MCH 34.0 (26-34) PG MCHC 33.8 (30-36) % RDW 12.4 (11.6-14.8) % Plt Count 353 (150-400) X10^3/uL Neut % (Auto) 75.1 H (50-75) % Lymph % (Auto) 17.6 L (25-40) % Starke % (Auto) 6.4 (3-14) % Eos % (Auto) 0.7 L (2-4) % Baso % (Auto) 0.2 (0-2) % Neut # (Auto) 8600 H (9479-5140) /uL Lymph # (Auto) 2000 (7659-5652) /uL Starke # (Auto) 700 (0-900) /uL Eos # (Auto) 100 (0-450) /uL Baso # (Auto) 0 (0-100) /uL Sodium 139 (137-145) mmol/L Potassium 4.3 (3.4-5.1) mmol/L Chloride 106 (98-107) mmol/L Carbon Dioxide 20 L (22-32) mmol/L BUN 22 H (7-17) mg/dL Creatinine 0.75 (0.52-1.04) mg/dL Estimated GFR > 60 (>60) mL/min BUN/Creatinine Ratio 29.3 H (6-22) Glucose 103 H (70-99) mg/dL Calcium 9.3 (8.4-10.2) mg/dL Total Bilirubin 1.1 (0.2-1.3) mg/dL AST 24 (14-36) IU/L ALT 25 (<35) IU/L Alkaline Phosphatase 70 (38-126) U/L Total Protein 7.8 (6.3-8.2) g/dL Albumin 5.1 H (3.5-5.0) g/dL Globulin 2.7 (1.7-4.1) g/dL Albumin/Globulin Ratio 1.9 (1.0-2.8) Lipase 38 (23-300) U/L Urine RBC None seen (0-5/HPF) Urine WBC None seen (0-5/HPF) Ur Squamous Epith Cells 0-1 /hpf (0-5/HPF) Urine Bacteria None seen (None) Ur Culture Indicated? Cult not indicated Vol Urine Centrifuged 10ml (spun) Urine Dip Bedside Urine Glucose Negative Bedside Urine Bilirubin - Negative Bedside Urine Ketone +/- 5 Urine Specific Two Dot 1.005 Bedside Urine Occult Blood - Negative Bedside Urine pH 6.5 Bedside Urine Protein +/- 15 Bedside Urine Urobilinogen - Negative Bedside Urine Nitrite - Negative Bedside Urine Leukocytes - Negative Esterase MDM Narrative Medical decision making narrative: 54-year-old female with past medical history diverticulitis, hyperlipidemia, status post partial colectomy presents to the ED with 2 days of nausea, vomiting, diarrhea. Concern for gastroenteritis versus surgical complications from the colectomy versus diverticulitis versus nephrolithiasis versus UTI versus other. Obtained labs, UA, CT abdomen pelvis. Labs within normal limits. UA without UTI. CT abdomen pelvis shows fluid-filled loops of small bowel within the pelvis as well as fluid filling the cecum. Findings may represent an enterocolitis. Otherwise, no acute findings within the abdomen pelvis. Status post hysterectomy. Discussed findings with patient. Patient was given another dose of Zofran. Patient's symptoms are well controlled at this time. Patient was unable to provide a stool sample. Recommend patient continue to take Zofran as needed at home, rehydrate well with water and electrolytes. Recommend follow-up with PCP. ED return precautions discussed with patient. Patient verbalized understanding. Medical records reviewed: Yes <Nicolás Gómez MD - Last Filed: 03/18/25 06:57> Lab Data Labs: Lab Results 03/02/25 03/02/25 Range/Units 11:21 13:36 WBC 11.5 H (4.5-11.0) X10^3/uL RBC 4.49 (4.0-5.2) X10^6/uL Hgb 15.3 (12.0-16.0) g/dL Hct 45.1 (36-46) % MCV 100.6 H (80-100) fL MCH 34.0 (26-34) PG MCHC 33.8 (30-36) % RDW 12.4 (11.6-14.8) % Plt Count 353 (150-400) X10^3/uL Neut % (Auto) 75.1 H (50-75) % Lymph % (Auto) 17.6 L (25-40) % Starke % (Auto) 6.4 (3-14) % Eos % (Auto) 0.7 L (2-4) % Baso % (Auto) 0.2 (0-2) % Neut # (Auto) 8600 H (8506-3635) /uL Lymph # (Auto) 2000 (2897-9562) /uL Starke # (Auto) 700 (0-900) /uL Eos # (Auto) 100 (0-450) /uL Baso # (Auto) 0 (0-100) /uL Sodium 139 (137-145) mmol/L Potassium 4.3 (3.4-5.1) mmol/L Chloride 106 (98-107) mmol/L Carbon Dioxide 20 L (22-32) mmol/L BUN 22 H (7-17) mg/dL Creatinine 0.75 (0.52-1.04) mg/dL Estimated GFR > 60 (>60) mL/min BUN/Creatinine Ratio 29.3 H (6-22) Glucose 103 H (70-99) mg/dL Calcium 9.3 (8.4-10.2) mg/dL Total Bilirubin 1.1 (0.2-1.3) mg/dL AST 24 (14-36) IU/L ALT 25 (<35) IU/L Alkaline Phosphatase 70 (38-126) U/L Total Protein 7.8 (6.3-8.2) g/dL Albumin 5.1 H (3.5-5.0) g/dL Globulin 2.7 (1.7-4.1) g/dL Albumin/Globulin Ratio 1.9 (1.0-2.8) Lipase 38 (23-300) U/L Urine RBC None seen (0-5/HPF) Urine WBC None seen (0-5/HPF) Ur Squamous Epith Cells 0-1 /hpf (0-5/HPF) Urine Bacteria None seen (None) Ur Culture Indicated? Cult not indicated Vol Urine Centrifuged 10ml (spun) Urine Dip Bedside Urine Glucose Negative Bedside Urine Bilirubin - Negative Bedside Urine Ketone +/- 5 Urine Specific Two Dot 1.005 Bedside Urine Occult Blood - Negative Bedside Urine pH 6.5 Bedside Urine Protein +/- 15 Bedside Urine Urobilinogen - Negative Bedside Urine Nitrite - Negative Bedside Urine Leukocytes - Negative Esterase Discharge Plan Departure Patient Disposition: Home Clinical Impression: Nausea, vomiting and diarrhea Instructions: DI for Viral Gastroenteritis -- Adult Activity Restrictions/Additional Instructions: You were evaluated in the emergency department for nausea, vomiting, diarrhea. Your labs and urine were normal. Your CT scan shows gastroenteritis, which is due to food poisoning. It is reassuring to note that your nausea and vomiting are well controlled with Zofran. You are being given 2 doses of Zofran in the ED. You were also being prescribed Zofran to take as home as needed for nausea. Please continue to hydrate well with water and electrolytes. Return to the ED if you have worsening symptoms. Prescriptions: New ondansetron 4 mg tablet,disintegrating 4 mg PO Q8H PRN (Reason: nausea and vomiting) Qty: 14 0RF No Action hydroxyzine pamoate 25 mg capsule 25 mg PO 3XD PRN (Reason: itch) semaglutide (weight loss) SUBCUT benzonatate 200 mg capsule 200 mg PO BID PRN (Reason: cough) Qty: 30 0RF estradiol 1 mg tablet 1 mg PO QDAY Qty: 90 1RF Referrals: Jessica Yadav DO [Primary Care Provider, Family Practice] Stand Alone Forms: Patient Portal/API ED Sign-out <Nicolás Gómez MD - Last Filed: 03/18/25 06:57> Cosign ED Attending Cosignature Attestation: I was immediately available in the department for consultation. ?This documentation has been reviewed and I agree with assessment and plan. Supervised by Nicolás Gómez MD
[2025-03-02 15:26] VITALS: BP 120/69; PULSE 84; RESP 19; O2SAT 97
== END 2025-03-02 15:28 | disposition home or self-care (01) ==
PROVIDERS: Emergency Medicine; Emergency Provider Student in an Organized Health Care Education/Training Program; Family Provider Transplant Surgery; PCP Family Medicine
DX: R11.2 Nausea with vomiting, unspecified (principal); R19.7 Diarrhea, unspecified; Z87.442 Personal history of urinary calculi; R10.9 Unspecified abdominal pain
CPT/HCPCS: 36415; 74177; 80053; 81003; 81015; 83690; 85025; 93005; 93010; 96374; 96376; 99284; J2405; Q9967